=== PATIENT | female | born 1950 | race Caucasian/White ===

== ENCOUNTER 2016-11-11 13:47 | Inpatient (IN) | payer MEDICARE ==
[2016-11-11] MEDS ORDERED: IPRATROPIUM-ALBUTEROL 3 ML NEB INHALATION STA (14:38)
--- NOTE | 2016-11-11 14:41 | ED ---
General Adult HPI - General Chief complaint: Shortness of Breath Stated complaint: Dyspnea Time Seen by Provider: 11/11/16 14:25 Source: patient, RN notes reviewed Mode of arrival: ambulatory Limitations: no limitations - History of Present Illness Initial comments: Patient is a pleasant 66-year-old female presenting to the emergency department complaining of shortness of breath. Symptoms have been present for about a week. Patient does have cough with occasional green sputum. Patient does have COPD and feels is getting worse. No chest discomfort. No leg pain or leg swelling. No fevers. - Related Data Home Medications Medication Instructions Recorded Confirmed Lisinopril [Prinivil] 20 mg PO BID 12/10/14 11/11/16 Albuterol Inhaler [Ventolin Hfa 1 - 2 puff INHALATION RT-Q6H PRN 11/11/16 Inhaler] Omeprazole 20 mg PO DAILY 11/11/16 11/11/16 Allergies Allergy/AdvReac Type Severity Reaction Status Date / Time No Known Allergies Allergy Verified 11/11/16 15:55 Review of Systems ROS Statement: Those systems with pertinent positive or pertinent negative responses have been documented in the HPI. ROS Other: All systems not noted in ROS Statement are negative. Constitutional: Denies: fever Eyes: Denies: eye pain ENT: Denies: ear pain Respiratory: Reports: cough, dyspnea Cardiovascular: Denies: chest pain Endocrine: Denies: fatigue Gastrointestinal: Denies: abdominal pain Genitourinary: Denies: dysuria Musculoskeletal: Denies: back pain Skin: Denies: rash Neurological: Denies: weakness Past Medical History Past Medical History: Cancer, Hypertension, Thyroid Disorder History of Any Multi-Drug Resistant Organisms: None Reported Past Surgical History: Breast Surgery, Section, Hysterectomy, Tonsillectomy Additional Past Surgical History / Comment(s): Thyroid surgery; eye surgery Past Psychological History: No Psychological Hx Reported Smoking Status: Former smoker Past Alcohol Use History: None Reported, Daily Past Drug Use History: None Reported General Exam Limitations: no limitations General appearance: alert, in no apparent distress Head exam: Present: atraumatic, normocephalic Eye exam: Present: normal appearance, PERRL ENT exam: Present: normal oropharynx Neck exam: Present: normal inspection Respiratory exam: Present: rales (Right base) Cardiovascular Exam: Present: regular rate, normal rhythm Expanded Peripheral pulses: 2+: Radial (R), Radial (L), Dorsalis Pedis (R), Dorsalis Pedis (L) GI/Abdominal exam: Present: soft. Absent: tenderness Extremities exam: Present: normal inspection. Absent: pedal edema, calf tenderness Neurological exam: Present: alert Psychiatric exam: Present: normal affect, normal mood Skin exam: Absent: rash Course Vital Signs 11/11/16 11/11/16 11/11/16 14:17 14:45 14:48 Temperature 98.4 F Pulse Rate 105 H 96 Respiratory 18 18 18 Rate Blood Pressure 151/66 163/72 O2 Sat by Pulse 90 L 98 Oximetry 11/11/16 11/11/16 15:33 15:44 Temperature Pulse Rate 104 H 105 H Respiratory Rate Blood Pressure O2 Sat by Pulse Oximetry EKG Findings - EKG Comments: EKG Findings:: Normal sinus rhythm at 96. Normal intervals. Normal axis. Normal QRS. Normal ST-T. Medical Decision Making - Medical Decision Making Patient has probable early pneumonia. Patient does not meet sepsis criteria. Patient desaturates with ambulation to 84% and heart rate increased to 118. Patient is now agreeable to admission. Case discussed in detail with Dr. Tan, who will admit for Dr. Roman. Patient states she has seen Dr. Dougherty for pulmonary previously. - Lab Data Result diagrams: 11/11/16 14:44 11/11/16 14:44 Lab Results 11/11/16 11/11/16 11/11/16 Range/Units 14:44 14:44 14:44 WBC 9.2 (3.8-10.6) k/uL RBC 3.64 L (3.80-5.40) m/uL Hgb 11.0 L (11.4-16.0) gm/dL Hct 33.1 L (34.0-46.0) % MCV 90.9 (80.0-100.0) fL MCH 30.4 (25.0-35.0) pg MCHC 33.4 (31.0-37.0) g/dL RDW 13.7 (11.5-15.5) % Plt Count 415 (150-450) k/uL Neutrophils % 86 % Lymphocytes % 5 % Monocytes % 6 % Eosinophils % 0 % Basophils % 0 % Neutrophils # 7.9 H (1.3-7.7) k/uL Lymphocytes # 0.5 L (1.0-4.8) k/uL Monocytes # 0.6 (0-1.0) k/uL Eosinophils # 0.0 (0-0.7) k/uL Basophils # 0.0 (0-0.2) k/uL PT (9.0-12.0) sec INR (<1.1) APTT (22.0-30.0) sec Sodium 139 (137-145) mmol/L Potassium 3.9 (3.5-5.1) mmol/L Chloride 101 (98-107) mmol/L Carbon Dioxide 28 (22-30) mmol/L Anion Gap 10 mmol/L BUN 12 (7-17) mg/dL Creatinine 0.65 (0.52-1.04) mg/dL Est GFR (MDRD) Af Amer >60 (>60 ml/min/1.73 sqM) Est GFR (MDRD) Non-Af >60 (>60 ml/min/1.73 sqM) Glucose 91 (74-99) mg/dL Calcium 8.9 (8.4-10.2) mg/dL Total Bilirubin 0.7 (0.2-1.3) mg/dL AST 24 (14-36) U/L ALT 43 (9-52) U/L Alkaline Phosphatase 82 (38-126) U/L Total Creatine Kinase 158 H (30-135) U/L CK-MB (CK-2) 0.5 (0.0-2.4) ng/mL CK-MB (CK-2) Rel Index 0.3 Troponin I 0.018 (0.000-0.034) ng/mL NT-Pro-B Natriuret Pep pg/mL Total Protein 6.7 (6.3-8.2) g/dL Albumin 3.4 L (3.5-5.0) g/dL 11/11/16 11/11/16 Range/Units 14:44 14:44 WBC (3.8-10.6) k/uL RBC (3.80-5.40) m/uL Hgb (11.4-16.0) gm/dL Hct (34.0-46.0) % MCV (80.0-100.0) fL MCH (25.0-35.0) pg MCHC (31.0-37.0) g/dL RDW (11.5-15.5) % Plt Count (150-450) k/uL Neutrophils % % Lymphocytes % % Monocytes % % Eosinophils % % Basophils % % Neutrophils # (1.3-7.7) k/uL Lymphocytes # (1.0-4.8) k/uL Monocytes # (0-1.0) k/uL Eosinophils # (0-0.7) k/uL Basophils # (0-0.2) k/uL PT 11.1 (9.0-12.0) sec INR 1.1 (<1.1) APTT 25.8 (22.0-30.0) sec Sodium (137-145) mmol/L Potassium (3.5-5.1) mmol/L Chloride (98-107) mmol/L Carbon Dioxide (22-30) mmol/L Anion Gap mmol/L BUN (7-17) mg/dL Creatinine (0.52-1.04) mg/dL Est GFR (MDRD) Af Amer (>60 ml/min/1.73 sqM) Est GFR (MDRD) Non-Af (>60 ml/min/1.73 sqM) Glucose (74-99) mg/dL Calcium (8.4-10.2) mg/dL Total Bilirubin (0.2-1.3) mg/dL AST (14-36) U/L ALT (9-52) U/L Alkaline Phosphatase (38-126) U/L Total Creatine Kinase (30-135) U/L CK-MB (CK-2) (0.0-2.4) ng/mL CK-MB (CK-2) Rel Index Troponin I (0.000-0.034) ng/mL NT-Pro-B Natriuret Pep 2240 pg/mL Total Protein (6.3-8.2) g/dL Albumin (3.5-5.0) g/dL - Radiology Data Radiology results: image reviewed (Chest x-ray shows basilar infiltrate) Disposition Clinical Impression: Acute exacerbation of chronic obstructive airways disease, Pneumonia Disposition: ADMITTED IP TO THIS HOSP
[2016-11-11 14:57] LABS: Basophils % (A) 0 %; CH 29.5; CHCM 32.7; Eosinophils % (A) 0 %; HCT 33.1 % (34.0-46.0); HDW 2.32; Luc # (Auto) 0.19; Luc % (Auto) 2; Lymphocytes # (A) 0.5 k/uL (1.0-4.8); Lymphocytes % (A) 5 %; MCH 30.4 pg (25.0-35.0); MCHC 33.4 g/dL (31.0-37.0); MCV 90.9 fL (80.0-100.0); Mean Platelet Volume 7.6; Monocytes # (A) 0.6 k/uL (0-1.0); Monocytes % (A) 6 %; Neutrophils # (A) 7.9 k/uL (1.3-7.7); Neutrophils % (A) 86 %; RBC 3.64 m/uL (3.80-5.40); RDW 13.7 % (11.5-15.5); WBC 9.2 k/uL (3.8-10.6); WBC (Perox) 8.98
[2016-11-11 15:04] LABS: ALT 43 U/L (9-52); AST 24 U/L (14-36); Alkaline Phosphatase 82 U/L (38-126); Anion Gap 10 mmol/L; Blood Urea Nitrogen 12 mg/dL (7-17); Calcium 8.9 mg/dL (8.4-10.2); Carbon Dioxide 28 mmol/L (22-30); Chloride 101 mmol/L (98-107); Glucose 91 mg/dL (74-99); Non-African American GFR(MDRD) >60 (>60 ml/min/1.73 sqM); Potassium 3.9 mmol/L (3.5-5.1); Sodium 139 mmol/L (137-145); Total Bilirubin 0.7 mg/dL (0.2-1.3); Total Protein 6.7 g/dL (6.3-8.2)
--- NOTE | 2016-11-11 15:07 | XR ---
EXAMINATION TYPE: XR chest 2V DATE OF EXAM: 11/11/2016 3:02 PM COMPARISON: NONE TECHNIQUE: PA and lateral views submitted. HISTORY: Shortness of breath FINDINGS: Subsegmental changes involving the lung bases. Heart is prominent. No pneumothorax. Degenerative perry ge of the spine. Tiny bilateral pleural effusions. Atherosclerotic change aorta. IMPRESSION: 1. Bilateral basilar atelectasis or infiltrate with tiny effusions correlate for mild central venous congestion. 2. Findings suggest COPD
[2016-11-11 15:15] LABS: INR 1.1 (<1.1)
[2016-11-11 15:16] LABS: Partial Thromboplastin Time 25.8 sec (22.0-30.0); Prothrombin Time 11.1 sec (9.0-12.0)
[2016-11-11 15:30] LABS: Creatine Kinase MB 0.5 ng/mL (0.0-2.4); Troponin I 0.018 ng/mL (0.000-0.034)
[2016-11-11] MEDS ORDERED: LEVOFLOXACIN 750MG-D5W PMX 750 MG in DEXTROSE/WATER 1 150ML.BAG IVPB STA (16:28)
[2016-11-11] MEDS ORDERED: PNEUMONIA PROTOCOL UTILIZED 1 EACH MISC PO PRN (16:28)
[2016-11-11] MEDS ORDERED: methylPREDNISolone SOD SUCCI 125 MG/2 ML VIAL IV STA (16:28)
[2016-11-11] MEDS ORDERED: IPRATROPIUM-ALBUTEROL 3 ML NEB INHALATION PRN (16:28)
[2016-11-11] MEDS: SODIUM CHLORIDE 0.9% 1,000 ML IV SCH (16:53)
--- NOTE | 2016-11-11 18:20 | HP ---
DATE OF ADMISSION: 11/11/2016 The patient is a very pleasant 66 -year-old female came into the Emergency Room Department with one week of shortness of breath and cough and sputum production. The patient denied any ( ) dyspnea, nausea and vomiting, ( ) not consistent with pneumonia although ( ) the patient was started on systemic steroids and inhalational treatments. The patient is already feeling better at this point in time. The patient whenever she coughs, the patient has chest ( ) from ( ) for about a week. The patient used to be smoker. Quit smoking about a year ago. The patient does not use any oxygen at home. Home medications: 1. Lisinopril. 2. Albuterol. 3. ( ). ALLERGIES: No known drug allergies. REVIEW OF SYSTEMS: CONSTITUTIONAL: No fever, no malaise, no fatigue. HEENT: No recent visual problems or hearing problems. Denied any sore throat. CARDIOVASCULAR: No chest pain, orthopnea, PND, no palpitations, no syncope. PULMONARY: ( ) no cough, no hemoptysis. GASTROINTESTINAL: No diarrhea, no nausea, no vomiting, no abdominal pain. Normoactive bowel sounds. NEUROLOGICAL: No headaches, no weakness, no numbness. HEMATOLOGICAL: Denies any bleeding or petechiae. GENITOURINARY: Denies any burning micturition, frequency, or urgency. MUSCULOSKELETAL/RHEUMATOLOGICAL: Denies any joint pain, swelling, or any muscle pain. ENDOCRINE: Denies any polyuria or polydipsia. The rest of the 14 point review of systems is negative. PAST MEDICAL HISTORY: Hypertension, hypothyroidism, breast cancer in the past, ( ) hysterectomy, breast surgery, tonsillectomy in the past. SOCIAL HISTORY: ( ) smoker, ( ) denied any alcohol abuse or any drug abuse. FAMILY HISTORY: Significant for hypertension. PHYSICAL EXAMINATION: VITAL SIGNS: Temperature 98.2, pulse 105, respiratory rate 18, blood pressure is 129/62, saturating at 90% on 3 L of O2 by nasal cannula. GENERAL: The patient is alert and oriented x3, not in any acute distress. Well developed, well nourished. HEENT: Pupils are round and equally reacting to light. EOMI. No scleral icterus. No conjunctival pallor. Normocephalic, atraumatic. No pharyngeal erythema. No thyromegaly. CARDIOVASCULAR: S1 and S2 present. No murmurs, rubs, or gallops. PULMONARY: ( ) bilateral lung shaikh ( ). No crackles are appreciated. ABDOMEN: Soft, nontender, nondistended, normoactive bowel sounds. No palpable organomegaly. MUSCULOSKELETAL: No joint swelling or deformity. EXTREMITIES: No cyanosis, clubbing, or pedal edema. NEUROLOGICAL: Gross neurological examination did not reveal any focal deficits. SKIN: No rashes. LABORATORY DATA: CBC, BMP within normal limits. ASSESSMENT AND PLAN: 1. Acute hypercapnic respiratory failure, ( ) chronic obstructive pulmonary disease exacerbation. The patient is continued on ( ) the patient is already ( ) continue ( ) bronchitis. 2. Hypertension, continue hypertensives. 3. Hypothyroidism. Continue with her home medications ( ) as well. 4. Gastroesophageal reflux disease. 5. ( ).
[2016-11-11] MEDS: IPRATROPIUM-ALBUTEROL 3 ML NEB INHALATION SCH (20:14)
[2016-11-11 21:02] LABS: Glucose,Whole Blood 161 mg/dL (75-99)
[2016-11-11] MEDS: INSULIN LISPRO (humaLOG) 300 UNIT/3 ML VIAL SQ SCH (21:13)
[2016-11-11] MEDS: LISINOPRIL 20 MG TAB PO SCH (21:14)
[2016-11-11] MEDS ORDERED: TEMAZEPAM 15 MG CAP PO SCH (21:30)
[2016-11-11 22:45] LABS: Hemoglobin A1C 5.8 % (4.2-6.1)
[2016-11-11] MEDS: methylPREDNISolone SOD SUCCI 125 MG/2 ML VIAL IV SCH (23:22)
[2016-11-12] MEDS: SODIUM CHLORIDE 0.9% 1,000 ML IV SCH ×2 (02:38→10:18)
[2016-11-12] MEDS: methylPREDNISolone SOD SUCCI 125 MG/2 ML VIAL IV SCH ×3 (06:00→17:09)
[2016-11-12 06:57] LABS: Glucose,Whole Blood 135 mg/dL (75-99)
[2016-11-12] MEDS: LISINOPRIL 20 MG TAB PO SCH ×2 (07:37→22:00)
[2016-11-12] MEDS: PANTOPRAZOLE 40 MG TABLET PO SCH (07:38)
[2016-11-12] MEDS: INSULIN LISPRO (humaLOG) 300 UNIT/3 ML VIAL SQ SCH ×4 (07:39→21:59)
[2016-11-12] MEDS: IPRATROPIUM-ALBUTEROL 3 ML NEB INHALATION SCH ×4 (09:01→19:28)
--- NOTE | 2016-11-12 09:01 | XR ---
EXAMINATION TYPE: XR chest 2V DATE OF EXAM: 11/12/2016 8:01 AM COMPARISON: 11/11/2016 TECHNIQUE: PA and lateral views submitted. HISTORY: Shortness of breath FINDINGS: Subsegmental changes involving the lung bases. Heart is prominent. No pneumothorax. Degenerative perry ge of the spine. Tiny bilateral pleural effusions. Atherosclerotic change aorta. IMPRESSION: 1. Bilateral basilar atelectasis or infiltrate with tiny effusions correlate for mild central venous congestion. No interval change. 2. Findings suggest COPD
[2016-11-12 10:12] VITALS: BMI 24.7
--- NOTE | 2016-11-12 11:28 | P.CNPUL ---
History of Present Illness Consult date: 11/12/16 Requesting physician: Chelsi Tan Reason for consult: COPD Chief complaint: Shortness of breath History of present illness: This patient is a 66-year-old female being evaluated and examined today on the fourth floor. This patient is known to our office. The patient came into the emergency room yesterday complaining with complaints of shortness of breath that had been going on for over a week. The patient does have a productive cough with green sputum. The patient does have a significant history for COPD. In the ER it was noted that the patient didn't desaturate with ambulation to 84% and her heart rate increased to 118. Upon examination the patient is resting in bed on 2 L of oxygen. She states she does have a significant productive cough with green sputum. She denies any chest pain, fevers, chills, nausea, vomiting or sweats. Review of Systems 14 point review of systems has been completed and is negative other than what is noted in the HPI. Past Medical History Past Medical History: Cancer, COPD, GERD/Reflux, Hypertension, Osteoarthritis ( OA), Pneumonia, Thyroid Disorder Additional Past Medical History / Comment(s): THYROID NODULE(BENIGN), LT BREAST CANCER History of Any Multi-Drug Resistant Organisms: None Reported Past Surgical History: Breast Surgery, Section, Hernia Repair, Hysterectomy, Tonsillectomy Additional Past Surgical History / Comment(s): PARTIALThyroidectomy(nodule) s, [place] cataracts-lens implants, lt breast lumpectomy and sential nodes removed, x4 c-sections,abd hernia repair Past Anesthesia/Blood Transfusion Reactions: No Reported Reaction Past Psychological History: No Psychological Hx Reported Additional Psychological History / Comment(s): pt is independant, lives with sig other and 1 cat. works as a formal waiter/waitress. no outside services recieved. no hipsotial equipment at home. has 4 steps to get into home-single level house. Smoking Status: Former smoker Past Alcohol Use History: None Reported, Occasional Additional Past Alcohol Use History / Comment(s): started smoking at age 14, smoked 1 ppd, quit 2014, admits to 3 drinks per week Past Drug Use History: None Reported - Past Family History Father Family Medical History: Cancer Additional Family Medical History / Comment(s): bone cancer, smoker Mother Family Medical History: Cancer Additional Family Medical History / Comment(s): lung cancer Medications and Allergies Home Medications Medication Instructions Recorded Confirmed Type Lisinopril [Prinivil] 20 mg PO BID 12/10/14 11/11/16 History Albuterol Inhaler [Ventolin Hfa 1 - 2 puff INHALATION RT-Q6H PRN 11/11/16 History Inhaler] Omeprazole 20 mg PO DAILY 11/11/16 11/11/16 History Allergies Allergy/AdvReac Type Severity Reaction Status Date / Time No Known Allergies Allergy Verified 11/11/16 15:55 Physical Exam Vitals: Vital Signs Temp Pulse Pulse Resp BP BP Pulse Ox 11/12/16 09:01 88 11/12/16 08:00 77 20 11/12/16 07:00 97.7 F 77 20 119/62 98 11/12/16 00:00 18 11/11/16 23:00 99.3 F 91 18 113/53 90 L 11/11/16 20:22 92 11/11/16 20:14 88 11/11/16 18:10 98.4 F 101 H 16 155/62 94 L 11/11/16 17:57 99.1 F 101 H 16 130/70 99 11/11/16 16:51 99.5 F 102 H 17 153/66 94 L Intake and Output 11/11/16 11/12/16 11/12/16 22:59 06:59 14:59 Intake Total 240 800 240 Balance 240 800 240 Intake: Intake, IV Titration 800 Amount Sodium Chloride 0.9% 1, 800 000 ml @ 100 mls/hr IV . Q10H [facility] Rx#:[id number] Oral 240 240 Other: Weight 61.235 kg Patient Weight 11/13/16 06:59 Weight 61.235 kg GENERAL EXAM: Alert, active, comfortable in no apparent distress. HEAD: Normocephalic. EYES: Normal reaction of pupils, equal size. NOSE: Clear with pink turbinates. THROAT: No erythema or exudates. NECK: No masses, no JVD. CHEST: No chest wall deformity. LUNGS: Equal air entry bilaterally, bilateral bases noted to have some faint crackles CVS: S1 and S2 normal with no audible mumurs, regular rhythm. ABDOMEN: No hepatosplenomegaly, normal bowel sounds, no guarding or rigidity. EXTREMITIES: No edema noted, pedal pulses palpable. SKIN: No rashes CENTRAL NERVOUS SYSTEM: No focal deficits, tone is normal in all 4 extremities. Results - Laboratory Findings CBC and BMP: 11/11/16 14:44 11/11/16 14:44 PT/INR, D-dimer PT 11.1 sec (9.0-12.0) 11/11/16 14:44 INR 1.1 (<1.1) 11/11/16 14:44 Abnormal lab findings: Abnormal Labs 11/11/16 11/12/16 21:00 06:42 POC Glucose (mg/dL) 161 H 135 H - Diagnostic Findings Chest x-ray: report reviewed, image reviewed Assessment and Plan Plan: Assessment Acute hypercapnic respiratory failure Bilateral community-acquired pneumonia Acute on chronic diastolic heart failure Hypertension Hypothyroidism. GERD Plan Medications have been reviewed and we will continue. We will continue with nebulizer treatments and IV steroids. We will add budesonide as an inhaled steroid as well. We will cut back IV fluids to 50 miles an hour. Influenza swab has been negative. We will have the patient use an incentive spirometer. Obtain sputum culture. Encourage ambulation. We will continue to monitor labs and adjust treatment as necessary.
[2016-11-12 12:10] LABS: Glucose,Whole Blood 143 mg/dL (75-99)
[2016-11-12] MEDS ORDERED: RX INFO: IV CONTRAST WAS GIVEN 1 EACH MISC MISCELLANE PRN (12:42)
--- NOTE | 2016-11-12 15:09 | PN ---
Patient is admitted with COPD exacerbation. Patient is clinically doing well, but patient still desaturated. Patient's lungs sound good, in spite of which patient is still desaturating, because of which I have a little concern of about pulmonary embolism, because of which I will obtain a CT of the chest for PE if d-dimer is elevated. Patient is also tachycardic. If patient is clinically doing well, patient can be discharged tomorrow if PE is negative. REVIEW OF SYSTEMS: CARDIOVASCULAR: No chest pain, no orthopnea, no PND, no palpitations. PULMONARY: Denied any shortness of breath. No cough or hemoptysis. GASTROINTESTINAL: No diarrhea, nausea or vomiting. No abdominal pain. Normoactive bowel sounds. NEUROLOGIC: No headaches, no weakness, no numbness. Medications were reviewed. PHYSICAL EXAMINATION: VITAL SIGNS: Temperature 97.7, pulse of 92, respiratory rate of 20, blood pressure is 119/62, saturating at 98% on 2 L of O2 by nasal cannula. GENERAL: The patient is alert and oriented x3, not in any acute distress. Well developed, well nourished. HEENT: Pupils are round and equally reacting to light. EOMI. No scleral icterus. No conjunctival pallor. Normocephalic, atraumatic. No pharyngeal erythema. No thyromegaly. CARDIOVASCULAR: S1 and S2 present. No murmurs, rubs, or gallops. PULMONARY: Chest is clear to auscultation, no wheezing or crackles. ABDOMEN: Soft, nontender, nondistended, normoactive bowel sounds. No palpable organomegaly. MUSCULOSKELETAL: No joint swelling or deformity. EXTREMITIES: No cyanosis, clubbing, or pedal edema. NEUROLOGICAL: Gross neurological examination did not reveal any focal deficits. SKIN: No rashes. LABORATORY DATA: CBC, CMP, essentially within normal limits. ASSESSMENT AND PLAN: 1. Acute hypercapnic respiratory failure along with some acute hypoxic respiratory failure secondary to chronic obstructive pulmonary disease exacerbation. Rule out pulmonary embolism. 2. Hypertension. 3. Hypothyroidism. 4. Gastroesophageal reflux disease. 5. Osteoarthritis. For the rest of the above-mentioned chronic medical problems, I will go ahead and continue home medications, continue with systemic steroids, inhalational treatments. Possibility of discharge tomorrow on systemic steroids and oral antibiotics.
--- NOTE | 2016-11-12 15:47 | CT ---
CT CHEST FOR PULMONARY EMBOLISM. EXAMINATION TYPE: CT chest angio for PE DATE OF EXAM: 11/12/2016 3:06 PM INDICATION: Pt states of low O2 levels. CT DLP: 145.6 mGycm, Automated exposure control for dose reduction was used. CONTRAST: Patient injected with 70 mL of Omnipaque 350. COMPARISON: 06/16/2016 TECHNIQUE: CT of the chest is performed on a spiral scan at 2 mm thick sections. Study is performed with intravenous contrast timed for evaluation for pulmonary embolism. This will limit additional po rtions of the evaluation. 3-D MIP images reconstructed by the technologist are reviewed on the compu ter in the coronal and sagittal planes. FINDINGS: No persistent filling defects are evident to suggest an acute pulmonary embolism. No mediastinal or hilar adenopathy enlarged by CT criteria is evident. The ascending aorta diameter at the level of the main pulmonary artery is 2.9 cm. The main pulmonary artery diameter at the bifur cation is 2.6 cm. Mild pneumonitis changes are within the mid lingula and within the lower right middle lobe. Some atel ectasis may be at the cardiophrenic angle of the right middle lobe. Some atelectatic changes may be a t the left lingular base. Some streak opacities in both the bilateral diaphragms suggestive for subse gmental atelectasis. Infectious etiologies could be considered. Underlying masses are considered less likely but not entirely excluded. Findings should be followed to clearing. Limited CT section through the upper abdomen are unremarkable. There is a small hiatal hernia present . IMPRESSIONS: 1. No acute pulmonary embolism. 2. Probable scattered areas of atelectasis. Follow-up to clearing is recommended. Findings are interv al changes from 06/16/2016
[2016-11-12 16:54] LABS: Glucose,Whole Blood 208 mg/dL (75-99)
[2016-11-12] MEDS: LEVOFLOXACIN 750 MG TAB PO SCH (17:09)
[2016-11-12] MEDS: BUDESONIDE 1 MG/2 ML NEBU INHALATION SCH (19:28)
[2016-11-12 20:41] LABS: Glucose,Whole Blood 150 mg/dL (75-99)
[2016-11-12] MEDS ORDERED: TEMAZEPAM 15 MG CAP PO PRN (21:44)
[2016-11-13] MEDS: methylPREDNISolone SOD SUCCI 125 MG/2 ML VIAL IV SCH ×2 (00:51→06:18)
[2016-11-13] MEDS: SODIUM CHLORIDE 0.9% 1,000 ML IV SCH (06:18)
[2016-11-13] MEDS: BUDESONIDE 1 MG/2 ML NEBU INHALATION SCH ×2 (07:24→20:03)
[2016-11-13] MEDS: IPRATROPIUM-ALBUTEROL 3 ML NEB INHALATION SCH ×4 (07:24→20:03)
[2016-11-13 07:34] LABS: Glucose,Whole Blood 151 mg/dL (75-99)
[2016-11-13] MEDS: PANTOPRAZOLE 40 MG TABLET PO SCH (08:09)
[2016-11-13] MEDS: INSULIN LISPRO (humaLOG) 300 UNIT/3 ML VIAL SQ SCH ×4 (08:09→20:53)
[2016-11-13] MEDS: LISINOPRIL 20 MG TAB PO SCH ×2 (08:09→20:53)
[2016-11-13] MEDS: FUROSEMIDE 10 MG/ML 4 ML VIAL IV SCH ×2 (10:06→16:47)
[2016-11-13 10:19] LABS: ALT 37 U/L (9-52); AST 23 U/L (14-36); Alkaline Phosphatase 72 U/L (38-126); Anion Gap 13 mmol/L; Blood Urea Nitrogen 19 mg/dL (7-17); Carbon Dioxide 20 mmol/L (22-30); Chloride 108 mmol/L (98-107); Glucose 187 mg/dL (74-99); Non-African American GFR(MDRD) >60 (>60 ml/min/1.73 sqM); Potassium 3.5 mmol/L (3.5-5.1); Sodium 141 mmol/L (137-145); Total Bilirubin 0.5 mg/dL (0.2-1.3); Total Protein 6.2 g/dL (6.3-8.2)
[2016-11-13 10:49] LABS: Basophils % (A) 0 %; CHCM 30.7; Eosinophils % (A) 0 %; HCT 30.8 % (34.0-46.0); Hypochromasia Slight; Luc # (Auto) 0.06; Luc % (Auto) 1; Lymphocytes # (A) 0.2 k/uL (1.0-4.8); Lymphocytes % (A) 2 %; MCH 28.8 pg (25.0-35.0); MCHC 30.3 g/dL (31.0-37.0); Mean Platelet Volume 8.2; Monocytes # (A) 0.2 k/uL (0-1.0); Monocytes % (A) 2 %; Neutrophils # (A) 10.9 k/uL (1.3-7.7); Neutrophils % (A) 96 %; RBC 3.24 m/uL (3.80-5.40); RDW 13.5 % (11.5-15.5); WBC 11.4 k/uL (3.8-10.6)
[2016-11-13 10:50] LABS: HGB 9.3 gm/dL (11.4-16.0)
--- NOTE | 2016-11-13 11:09 | ECHOF ---
Referral Reason:chf MEASUREMENTS -------- HEIGHT: 157.5 cm WEIGHT: 61.2 kg BP: 134/65 RVIDd: 3.2 cm (< 3.3) IVSd: 1.1 cm (0.6 - 1.1) LVIDd: 4.5 cm (3.9 - 5.3) LVPWd: 1.2 cm (0.6 - 1.1) IVSs: 1.5 cm LVIDs: 3.1 cm LVPWs: 1.6 cm LA Diam: 3.6 cm (2.7 - 3.8) LAESV Index (A-L): 36.19 ml/m Ao Diam: 2.6 cm (2.0 - 3.7) AV Cusp: 1.2 cm (1.5 - 2.6) LA Diam: 3.0 cm (2.7 - 3.8) MV EXCURSION: 18.742 mm (> 18.000) MV EF SLOPE: 141 mm/s (70 - 150) EPSS: 0.6 cm MV E Pieter: 0.72 m/s MV DecT: 203 ms MV A Pieter: 0.78 m/s MV E/A Ratio: 0.92 RAP: 5.00 mmHg RVSP: 42.49 mmHg FINDINGS -------- Sinus rhythm. This was a technically good study. There is borderline concentric left ventricular hypertrophy. Overall left ventricular systolic function is low-normal with, an EF between 50 - 55 %. The right ventricle is normal in size. LA is moderately dilated 34-39 ml/m2 The right atrium is normal in size. Aortic valve is trileaflet and is mildly thickened. The mitral valve leaflets are mildly thickened. Mild mitral annular calcification present. Mild mitral regurgitation is present. Mild tricuspid regurgitation present. There is mild pulmonary hypertension. The right ventricular systolic pressure, as measured by Doppler, is 42.49mmHg. Pulmonic valve appears structurally normal. The aortic root size is normal. Normal inferior vena cava with normal inspiratory collapse consistent with estimated right atrial pressure of 5 mmHg. Echo free space may represent effusion or a pericardial fat pad. CONCLUSIONS -------- 1. Sinus rhythm. 2. Mild mitral annular calcification present. 3. Mild mitral regurgitation is present. 4. Mild tricuspid regurgitation present. 5. There is mild pulmonary hypertension. 6. The right ventricular systolic pressure, as measured by Doppler, is 42.49mmHg. 7. Pulmonic valve appears structurally normal. 8. The aortic root size is normal. 9. Normal inferior vena cava with normal inspiratory collapse consistent with estimated right atrial pressure of 5 mmHg. 10. Echo free space may represent effusion or a pericardial fat pad. 11. This was a technically good study. 12. There is borderline concentric left ventricular hypertrophy. 13. Overall left ventricular systolic function is low-normal with, an EF between 50 - 55 %. 14. The right ventricle is normal in size. 15. LA is moderately dilated 34-39 ml/m2 16. The right atrium is normal in size. 17. Aortic valve is trileaflet and is mildly thickened. 18. The mitral valve leaflets are mildly thickened. FOUNTAIN WORKER: Ronn Johnson RDCS
[2016-11-13 11:47] LABS: Glucose,Whole Blood 132 mg/dL (75-99)
--- NOTE | 2016-11-13 12:59 | P.PN ---
Subjective This patient is a 66-year-old female being evaluated and examined today on the fourth floor. This patient is known to our office. Patient came into the emergency room initially complaining of increasing in shortness of breath had been going on for over a week. The patient does have a productive cough with green sputum. The patient does have a significant history of COPD. In the ER it was noted that the patient did desaturate with ambulation to 84% and her heart rate increased to 118. Upon examination the patient is resting up in bed on room air. She states she hasn't required oxygen since yesterday. She also has been ambulating in the halls today as well. She does complain of a productive cough with green sputum that has been consistent. She denies any chest pain, fevers, chills, nausea, vomiting or sweats. Objective - Vital Signs Vital signs: Vital Signs Temp 98.0 F 11/13/16 07:00 Pulse 88 11/13/16 11:30 Resp 18 11/13/16 08:00 BP 134/65 11/13/16 07:00 Pulse Ox 94 L 11/13/16 07:00 Intake & Output 11/12/16 11/13/16 11/13/16 18:59 06:59 18:59 Intake Total 390 300 Balance 390 300 Weight 61.235 kg Intake: Oral 390 300 Other: Voiding Method Toilet # Voids 1 2 - Exam GENERAL EXAM: Alert, active, comfortable in no apparent distress. HEAD: Normocephalic. EYES: Normal reaction of pupils, equal size. NOSE: Clear with pink turbinates. THROAT: No erythema or exudates. NECK: No masses, no JVD. CHEST: No chest wall deformity. LUNGS: Equal air entry some faint bilateral crackles in the bases. CVS: S1 and S2 normal with no audible mumurs, regular rhythm. ABDOMEN: No hepatosplenomegaly, normal bowel sounds, no guarding or rigidity. EXTREMITIES: No edema noted, pedal pulses palpable. SKIN: No rashes CENTRAL NERVOUS SYSTEM: No focal deficits, tone is normal in all 4 extremities. - Labs CBC & Chem 7: 11/13/16 08:58 11/13/16 08:58 Labs: Abnormal Lab Results - Last 24 Hours (Table) 11/12/16 11/12/16 11/12/16 Range/Units 14:40 16:52 20:40 WBC (3.8-10.6) k/uL RBC (3.80-5.40) m/uL Hgb (11.4-16.0) gm/dL Hct (34.0-46.0) % MCHC (31.0-37.0) g/dL Neutrophils # (1.3-7.7) k/uL Lymphocytes # (1.0-4.8) k/uL D-Dimer 0.66 H (<0.60) mg/L FEU Chloride (98-107) mmol/L Carbon Dioxide (22-30) mmol/L BUN (7-17) mg/dL Glucose (74-99) mg/dL POC Glucose (mg/dL) 208 H 150 H (75-99) mg/dL Total Protein (6.3-8.2) g/dL Albumin (3.5-5.0) g/dL 11/13/16 11/13/16 11/13/16 Range/Units 07:32 08:58 08:58 WBC 11.4 H (3.8-10.6) k/uL RBC 3.24 L (3.80-5.40) m/uL Hgb 9.3 L D (11.4-16.0) gm/dL Hct 30.8 L (34.0-46.0) % MCHC 30.3 L (31.0-37.0) g/dL Neutrophils # 10.9 H (1.3-7.7) k/uL Lymphocytes # 0.2 L (1.0-4.8) k/uL D-Dimer (<0.60) mg/L FEU Chloride 108 H (98-107) mmol/L Carbon Dioxide 20 L (22-30) mmol/L BUN 19 H (7-17) mg/dL Glucose 187 H (74-99) mg/dL POC Glucose (mg/dL) 151 H (75-99) mg/dL Total Protein 6.2 L (6.3-8.2) g/dL Albumin 3.1 L (3.5-5.0) g/dL 11/13/16 Range/Units 11:45 WBC (3.8-10.6) k/uL RBC (3.80-5.40) m/uL Hgb (11.4-16.0) gm/dL Hct (34.0-46.0) % MCHC (31.0-37.0) g/dL Neutrophils # (1.3-7.7) k/uL Lymphocytes # (1.0-4.8) k/uL D-Dimer (<0.60) mg/L FEU Chloride (98-107) mmol/L Carbon Dioxide (22-30) mmol/L BUN (7-17) mg/dL Glucose (74-99) mg/dL POC Glucose (mg/dL) 132 H (75-99) mg/dL Total Protein (6.3-8.2) g/dL Albumin (3.5-5.0) g/dL Microbiology - Last 24 Hours (Table) 11/11/16 17:29 Blood Culture - Preliminary Blood No Growth after 24 hours Assessment and Plan Plan: Assessment Acute hypercapnic respiratory failure Bilateral community-acquired pneumonia Acute on chronic diastolic heart failure Hypertension Hypothyroidism. GERD Plan Medications have been reviewed and we will continue. We will continue with nebulizer treatments and IV steroids. Her IV fluids have been turned off. Echo has been performed and reveals an EF of 50-55%, along with mild mitral valve and tricuspid valve regurgitation, as well as mild pulmonary hypertension. Influenza swab has been negative. Obtain sputum culture. Encourage ambulation. Preliminary blood cultures are negative. We will continue to monitor labs and adjust treatment as necessary.
[2016-11-13] MEDS ORDERED: methylPREDNISolone SOD SUCCI 40 MG/ML 1 ML VIAL IV SCH (16:00)
[2016-11-13 17:07] LABS: Glucose,Whole Blood 141 mg/dL (75-99)
[2016-11-13] MEDS: LEVOFLOXACIN 750 MG TAB PO SCH (17:58)
[2016-11-13 20:57] LABS: Glucose,Whole Blood 146 mg/dL (75-99)
[2016-11-13] MEDS ORDERED: TEMAZEPAM 15 MG CAP PO ONE (21:07)
--- NOTE | 2016-11-13 22:20 | PN ---
DATE OF SERVICE: 11/13/2016 PRESENTING COMPLAINT: Short of breath. INTERVAL HISTORY: This is a patient who presented with COPD exacerbation in a patient who had been a smoker. PE was ruled out. I saw this patient earlier today. Breathing is better, still a little bit short of breath at rest. Slight cough. Review of systems done for constitutional, cardiovascular, GI, pulmonary; relevant findings as above. Current medications are reviewed that include: 1. Bronchodilators and 2. Solu-Medrol. On examination, temperature 98, pulse 93, respirations 18, blood pressure 130/65, pulse ox 94% on room air. GENERAL APPEARANCE: Sitting up, slightly short of breath. EYES: Pupils equal. Conjunctivae normal. NECK: JVD raised. Mass not palpable. RESPIRATORY: Effort increased. LUNGS: Basal crackles. CARDIOVASCULAR: First and second sounds normal. Minimal edema. ABDOMEN: Soft, nontender. Liver and spleen not palpable. PSYCHIATRY: Alert and oriented x3. Mood. Mood and affect normal. INVESTIGATIONS: White count 11.4, hemoglobin 9.3. Potassium 3.5. Patient's chest x-ray reviewed from yesterday shows possibly pulmonary edema and also patient's proBNP on admission was 2240. ASSESSMENT: 1. Acute congestive heart failure exacerbation with clinical decompensation. Ejection fraction not known. 2. Acute hypercapnic hypoxic respiratory failure secondary to chronic obstructive pulmonary disease exacerbation, present on admission. 3. Essential hypertension. 4. Hypothyroidism. 5. Gastroesophageal reflux disease. 6. Primary osteoarthritis of multiple joints, bilateral. PLAN: Patient's IV fluids will be stopped. I will give the patient IV Lasix. This was discussed with the patient. I also ordered a 2-D echocardiogram to assess LV function. The COPD component is actually improving. Patient may have underlying CHF. Repeat a chest x-ray and give 2 doses of IV Lasix.
--- NOTE | 2016-11-14 07:19 | XR ---
EXAMINATION TYPE: XR chest 2V DATE OF EXAM: 11/14/2016 6:39 AM COMPARISON: NONE TECHNIQUE: PA and lateral views submitted. HISTORY: Shortness of breath FINDINGS: Subsegmental changes involving the lung bases. Heart is prominent. No pneumothorax. Degenerative perry ge of the spine. Tiny bilateral pleural effusions. Atherosclerotic change aorta. IMPRESSION: 1. Bilateral basilar atelectasis or infiltrate with tiny effusions correlate for mild central venous congestion. No interval change. 2. Findings suggest COPD
[2016-11-14 07:54] LABS: Glucose,Whole Blood 95 mg/dL (75-99)
[2016-11-14 07:57] VITALS: BP 143/68; PULSE 77; RESP 16; TEMP 98.1
[2016-11-14 08:13] LABS: Anion Gap 11 mmol/L; Blood Urea Nitrogen 27 mg/dL (7-17); Calcium 8.9 mg/dL (8.4-10.2); Carbon Dioxide 31 mmol/L (22-30); Chloride 102 mmol/L (98-107); Glucose 100 mg/dL (74-99); Non-African American GFR(MDRD) >60 (>60 ml/min/1.73 sqM); Potassium 3.3 mmol/L (3.5-5.1); Sodium 144 mmol/L (137-145)
[2016-11-14] MEDS: INSULIN LISPRO (humaLOG) 300 UNIT/3 ML VIAL SQ SCH ×2 (08:24→12:55)
[2016-11-14] MEDS: PANTOPRAZOLE 40 MG TABLET PO SCH (08:26)
[2016-11-14] MEDS: LISINOPRIL 20 MG TAB PO SCH (08:26)
[2016-11-14] MEDS: IPRATROPIUM-ALBUTEROL 3 ML NEB INHALATION SCH ×2 (08:37→11:56)
[2016-11-14] MEDS: BUDESONIDE 1 MG/2 ML NEBU INHALATION SCH (08:37)
[2016-11-14] MEDS ORDERED: SPIRONOLACTONE 25 MG TAB PO SCH (09:00)
[2016-11-14] MEDS ORDERED: predniSONE 20 MG TAB PO SCH (09:00)
--- NOTE | 2016-11-14 11:49 | PN ---
DATE OF SERVICE: 11/14/2016 HISTORY OF PRESENT ILLNESS: The patient is a 66-year-old female who came into the hospital with increased problems with shortness of breath that had been going on for about a week with productive cough of greenish type sputum. She does have a known history of COPD. She is seen today. She is doing relatively better. Her potassium is slightly low and has been corrected. She continues with nebulizer treatments, antibiotics and steroids. She states she still has problems with nonproductive cough. She has had no nausea, vomiting, chest pain or diarrhea noted. She appears in no acute respiratory distress at this time. Lung sounds remains somewhat coarse mostly bases. She was admitted with community-acquired pneumonia and acute hypercapnic respiratory failure. She is probably relatively stable pulmonary choi for discharge as long as she continues with nebulizer treatments and tapering steroids. On physical examination, vital signs show temperature of 98.1, heart rate 77, respiratory rate 16, blood pressure is 143/68, oxygen saturation on room air is 95%. Her labs show sodium of 144, potassium 3.3, chloride 102, carbon dioxide 31, BUN 27, creatinine 0.76. Glucose was 95. Calcium 8.9. Her blood culture showed no growth. Her chest x-ray from today shows bilateral basilar atelectasis or infiltrate with tiny effusions correlate for mild central venous congestion. No interval changes with the findings suggestive of COPD. GENERAL: She is a pleasant 66-year-old female who appears in no acute respiratory distress at this time. HEENT: Pupils are reactive. Mucous membranes are moist. NECK: Supple. Trach is midline. Lung sounds slightly coarse. A few rales at bases. CARDIOVASCULAR: S1 and S2 is heard, regular. No murmurs. ABDOMEN: Soft. Bowel sounds are heard. EXTREMITIES: No edema. Pulses are palpable. NEUROLOGIC: She is awake, alert. IMPRESSION: 1. Bilateral community-acquired pneumonia. 2. Hypercapnic respiratory failure on admission. 3. Acute on chronic diastolic congestive heart failure. 4. Hypertension. 5. Hypothyroidism. 6. Gastroesophageal reflux disease. 7. Hypokalemia. 8. Ejection fraction was 50% to 55% with RVSP of 42.49 mmHg, PLAN: Will continue patient with her present medications including her nebulizer treatments, DuoNeb and budesonide. She may benefit from having at least DuoNeb at home and continue with tapering steroids. Continue with Levaquin for at least a total 7 days. Continue with GI and DVT prophylaxis. Potassium has been replaced. Increase activity. Continue with incentive spirometer. If discharged, she should follow up with Dr. Dougherty in about one week's time. The patient is stable at this time. cc: Dr Miguelina MORIN
[2016-11-14] MEDS ORDERED: POTASSIUM CHLORIDE ER 20 MEQ TAB.ER PO SCH (12:00)
[2016-11-14 12:44] LABS: Glucose,Whole Blood 100 mg/dL (75-99)
--- NOTE | 2016-11-14 20:21 | DS ---
DATE OF ADMISSION: 11/11/2016 DATE OF DISCHARGE: 11/14/2016 FINAL DIAGNOSES: 1. Acute congestive heart failure exacerbation from diastolic dysfunction, ejection fraction 50% from underlying hypertension, present on admission. 2. Acute hypercapnic hypoxic respiratory failure secondary to chronic obstructive pulmonary disease, present on admission. 3. Essential hypertension. 4. Hypothyroidism. 5. Gastroesophageal reflux disease. 6. Primary osteoarthritis of multiple joints, bilateral. HOSPITAL COURSE: This patient presented with shortness of breath, felt to have COPD and CHF exacerbation as confirmed by elevated BNP and good response to Lasix. A 2-D echocardiogram showed EF preserved at 50% to 55%. Patient is doing much better at the time of discharge. Care was discussed with the patient. On exam, lungs decreased breath sounds. CONSULTATION: Dr. Dougherty from pulmonary. DISCHARGE MEDICATIONS: 1. Ventolin 1 to 2 puffs q.6 p.r.n. 2. Omeprazole 20 mg a day. 3. Atrovent HFA 2 puffs q.i.d. 4. Prinivil 20 mg q.h.s. 5. Aldactone 25 mg a day. 6. Prednisone taper. Follow with Dr. Roman in one week, follow with Dr. Dougherty in one week. Discharge planning more than 35 minutes.
== END 2016-11-14 13:30 | disposition home or self-care (01) | DRG 190 ==
LOC: EC 13:47 → 4MS4W 16:28
PROVIDERS: ADMIT Hospitalist; ATTEND Hospitalist
DX: J44.1 Chronic obstructive pulmonary disease with (acute) exacerbation (principal); I50.33 Acute on chronic diastolic (congestive) heart failure; J96.01 Acute respiratory failure with hypoxia; J96.02 Acute respiratory failure with hypercapnia; I27.2 Other secondary pulmonary hypertension; I11.0 Hypertensive heart disease with heart failure; E87.6 Hypokalemia; I08.1 Rheumatic disorders of both mitral and tricuspid valves; E89.0 Postprocedural hypothyroidism; R00.0 Tachycardia, unspecified; K21.9 Gastro-esophageal reflux disease without esophagitis; M19.91 Primary osteoarthritis, unspecified site; Z87.891 Personal history of nicotine dependence; Z85.3 Personal history of malignant neoplasm of breast; Z82.49 Family history of ischemic heart disease and other diseases of the circulatory system; Z96.1 Presence of intraocular lens; Z80.1 Family history of malignant neoplasm of trachea, bronchus and lung; Z80.8 Family history of malignant neoplasm of other organs or systems; Z79.899 Other long term (current) drug therapy; Z71.3 Dietary counseling and surveillance; Z90.710 Acquired absence of both cervix and uterus; Z90.12 Acquired absence of left breast and nipple; Z98.42 Cataract extraction status, left eye; Z98.41 Cataract extraction status, right eye; Z87.01 Personal history of pneumonia (recurrent)
CPT/HCPCS: 36415; 71020; 71275; 80048; 80053; 82550; 82553; 83036; 83880; 84484; 85025; 85379; 85610; 85730; 87040; 87502; 93005; 93306; 94640; 96365; 96375; 99285

== ENCOUNTER → 2017-02-16 | Outpatient (CLI) | payer MEDICARE ==
--- NOTE | 2017-02-16 13:28 | XR ---
EXAMINATION TYPE: XR chest 2V DATE OF EXAM: 02/16/2017 COMPARISON: 11/14/2016 TECHNIQUE: PA and lateral views submitted. HISTORY: COPD FINDINGS: The lungs are clear and there is no pneumothorax, pleural effusion, or focal pneumonia. Hyperinflat ion suggests COPD. Linear changes at the left lung base most typical scar or atelectasis. Hypertrophi c and degenerative change of the spine. Atherosclerotic change aorta. IMPRESSION: 1. No acute process.
--- NOTE | 2017-02-16 14:54 | NM ---
EXAMINATION TYPE: NM pul vent and perfuse DATE OF EXAM: 02/16/2017 COMPARISON: Chest x-ray 02/16/2017 HISTORY: Shortness of breath TECHNIQUE: Utilizing inhalation of 71 mCi Tc 99m DTPA aerosol and intravenous injection of 5.37 mCi of Tc 99m MAA, ventilation and perfusion images are acquired post injection in multiple projections. FINDINGS: Ventilation images are nondiagnostic due to heterogeneous uptake. This can be associated with COPD. S uggestion of at least 2 matched defects within the right lung. IMPRESSION: Severely limited exam for pulmonary embolism due to nondiagnostic ventilation images. Do suspect at l east 2 matched defects within the right lung which would place the patient at a intermediate probabil ity for pulmonary embolism.
== END | disposition home or self-care (01) ==
LOC: RADNMMAIN 12:53
PROVIDERS: ATTEND Internal Medicine Sleep Medicine
DX: I26.99 Other pulmonary embolism without acute cor pulmonale (principal); I74.9 Embolism and thrombosis of unspecified artery
CPT/HCPCS: 71020; 78582; A9540; A9567

== ENCOUNTER → 2017-04-20 | Outpatient (CLI) | payer MEDICARE ==
[2017-04-20 09:44] LABS: ALT 36 U/L (9-52); AST 25 U/L (14-36); Anion Gap 7 mmol/L; Blood Urea Nitrogen 14 mg/dL (7-17); Calcium 9.3 mg/dL (8.4-10.2); Carbon Dioxide 28 mmol/L (22-30); Chloride 106 mmol/L (98-107); Cholesterol 164 mg/dL (<200); Glucose 82 mg/dL (74-99); HDL Cholesterol 100 mg/dL (40-60); Non-African American GFR(MDRD) >60 (>60 ml/min/1.73 sqM); Potassium 4.3 mmol/L (3.5-5.1); Sodium 141 mmol/L (137-145)
== END ==
LOC: LABWHC1 08:49
PROVIDERS: ATTEND Internal Medicine Interventional Cardiology
DX: I10 Essential (primary) hypertension (principal); E78.2 Mixed hyperlipidemia
CPT/HCPCS: 36415; 80048; 80061; 84450; 84460

== ENCOUNTER 2020-04-18 08:34 | Day surgery (SDC) | payer MEDICARE ==
[2020-04-16 11:51] VITALS: BMI 26.4
[~2020-04-18 08:34] MED LIST: LACTATED RINGERS 1,000 ML IV SCH; ONDANSETRON 4 MG/2 ML VIAL IVP PRN
[2020-04-18 09:16] VITALS: TEMP 98.4
[2020-04-18] MEDS ORDERED: LIDOCAINE 1% (10MG/ML) FOR IV START INTRADERMA ONE (09:29)
[2020-04-18] MEDS ORDERED: PROPOFOL 10 MG/ML 20 ML VIAL IV ONE (09:46)
[2020-04-18] MEDS ORDERED: LIDOCAINE 1% INJ 10MG/ML (20 ML MDV) ONE (09:46)
--- NOTE | 2020-04-18 09:48 | P.GSHP ---
History of Present Illness H&P Date: 04/18/20 Chief Complaint: Diarrhea, GERD Cyst 70-year-old female referred from Dr. Roman. Patient will stay for EGD colonoscopy she's had issues with GERD and diarrhea. Her last colonoscopy was over 5 years ago. Past Medical History Past Medical History: Cancer, COPD, GERD/Reflux, Hypertension, Osteoarthritis (OA), Pneumonia, Thyroid Disorder Additional Past Medical History / Comment(s): Hx THYROID NODULE (SURGERY), LT BREAST CANCER WITH SURGERY & RADIATION [place] (2013)., SKIN CANCER., STATES CONSTIPATION/DIARRHEA AND BLOATING. History of Any Multi-Drug Resistant Organisms: None Reported Past Surgical History: Breast Surgery, Section, Hernia Repair, Hysterectomy, Tonsillectomy Additional Past Surgical History / Comment(s): PARTIALThyroidectomy(nodule), cataracts-lens implants, lt breast lumpectomy and sential nodes removed, x4 c- sections, abd hernia repair with mesh. Past Anesthesia/Blood Transfusion Reactions: No Reported Reaction Additional Past Anesthesia/Blood Transfusion Reaction / Comment(s): states local anesthetic does not work well. Past Psychological History: No Psychological Hx Reported Additional Psychological History / Comment(s): . Smoking Status: Former smoker Past Alcohol Use History: Daily Additional Past Alcohol Use History / Comment(s): started smoking at age 14, smoked 1 ppd, quit 2014. drinkes 1-2 beers/day Past Drug Use History: None Reported - Past Family History Father Family Medical History: Cancer Additional Family Medical History / Comment(s): bone cancer, smoker Mother Family Medical History: Cancer Additional Family Medical History / Comment(s): lung cancer Medications and Allergies Home Medications Medication Instructions Recorded Confirmed Type Albuterol Inhaler (Mhu) [Ventolin 1 - 2 puff INHALATION RT-Q6H PRN 11/11/16 04/18/20 History Hfa Inhaler (Mhu)] Omeprazole 20 mg PO DAILY 11/11/16 04/18/20 History Acetaminophen [Tylenol] 325 - 650 mg PO DIRECTED PRN 04/16/20 04/18/20 History Atorvastatin Calcium [Lipitor] 20 mg PO DAILY 04/16/20 04/18/20 History Cholecalciferol [Vitamin D3 (25 2,000 unit PO DAILY 04/16/20 04/18/20 History Mcg = 1000 Iu)] Naproxen Sodium [Aleve] 440 mg PO DIRECTED PRN 04/16/20 04/18/20 History Spironolactone [Aldactone] 12.5 mg PO HS 04/16/20 04/18/20 History Tiotropium 18 Mcg/Puff [Spiriva] 1 puff INHALATION DAILY 04/16/20 04/18/20 History lisinopriL [Prinivil] 20 mg PO DAILY 04/16/20 04/18/20 History Allergies Allergy/AdvReac Type Severity Reaction Status Date / Time No Known Allergies Allergy Verified 04/18/20 09:12 Surgical - Exam Vital Signs Temp Pulse Resp BP Pulse Ox 98.4 F 79 16 141/66 97 04/18/20 09:14 04/18/20 09:14 04/18/20 09:14 04/18/20 09:14 04/18/20 09:14 - General well developed, well nourished, no distress - Eyes PERRL - ENT normal pinna - Neck no masses - Respiratory normal expansion - Cardiovascular Rhythm: regular - Abdomen Abdomen: soft, non tender Assessment and Plan Assessment: GERD, diarrhea. We'll perform EGD and colonoscopy.
--- NOTE | 2020-04-18 10:10 | P.OP ---
Date of Procedure: 04/18/20 Preoperative Diagnosis: GERD Diarrhea Postoperative Diagnosis: Antral gastritis No evidence of hiatal hernia No evidence of esophagitis Procedure(s) Performed: EGD Colonoscopy Anesthesia: MAC Surgeon: Venkata Randhawa Pathology: other (Antrum) Condition: stable Disposition: PACU Description of Procedure: The patient's placed on the endoscopy table in the lateral position. She received IV sedation. The gastro-placed oropharynx passed in the esophagus and into the stomach. Scope then placed through the pylorus. The first and second portion of duodenum appeared normal. Scope was then brought back the antrum this. Mildly inflamed. A biopsies performed. The scope was retroflexed and remainder of the stomach appeared normal. The GE junction was at 40 cm. There is no evidence of a hiatal hernia. The distal esophagus appeared normal. The proximal esophagus appeared normal. Scope was brought patient. Next digital rectal exam was performed which revealed a few external hemorrhoids. Possible colonoscope was then placed patient anus and passed throughout the entire colon. The ileocecal valve was visualized. The cecum was normal. The ascending colon was normal. The transverse colon was normal. In the descending colon was a few scattered diverticula. In the sigmoid colon th ere is extensive diverticular changes. Scope was then brought back the rectum and this appeared normal. Scope was withdrawn from patient.
[2020-04-18 10:48] VITALS: BP 125/74; PULSE 88; RESP 18
== END 2020-04-18 10:48 | disposition home or self-care (01) ==
LOC: ORWHC2ENDO 08:34
PROVIDERS: ATTEND Surgery
DX: K29.50 Unspecified chronic gastritis without bleeding (principal); K21.9 Gastro-esophageal reflux disease without esophagitis; K64.4 Residual hemorrhoidal skin tags; K57.30 Diverticulosis of large intestine without perforation or abscess without bleeding; I10 Essential (primary) hypertension; J44.9 Chronic obstructive pulmonary disease, unspecified; M19.90 Unspecified osteoarthritis, unspecified site; E89.0 Postprocedural hypothyroidism; Z97.2 Presence of dental prosthetic device (complete) (partial); Z79.1 Long term (current) use of non-steroidal anti-inflammatories (NSAID); Z79.899 Other long term (current) drug therapy; Z98.41 Cataract extraction status, right eye; Z98.42 Cataract extraction status, left eye; Z98.890 Other specified postprocedural states; Z87.19 Personal history of other diseases of the digestive system; Z92.3 Personal history of irradiation; Z85.828 Personal history of other malignant neoplasm of skin; Z90.710 Acquired absence of both cervix and uterus; Z90.89 Acquired absence of other organs; Z87.01 Personal history of pneumonia (recurrent); Z86.39 Personal history of other endocrine, nutritional and metabolic disease; Z85.3 Personal history of malignant neoplasm of breast; Z96.1 Presence of intraocular lens; Z91.89 Other specified personal risk factors, not elsewhere classified; Z87.891 Personal history of nicotine dependence; Z80.8 Family history of malignant neoplasm of other organs or systems; Z81.2 Family history of tobacco abuse and dependence; Z80.1 Family history of malignant neoplasm of trachea, bronchus and lung
CPT/HCPCS: 88305; 45378; 43239; J2001; J2704

== ENCOUNTER → 2020-06-05 | Outpatient (CLI) | payer MEDICARE ==
--- NOTE | 2020-06-05 12:21 | MR ---
EXAMINATION TYPE: MR knee LT wo con DATE OF EXAM: 06/05/2020 COMPARISON: None HISTORY: LT knee pain TECHNIQUE: Multiplanar, multisequence imaging of the left knee is performed without IV contrast. FINDINGS: Narrowing of the joint spaces without evidence of erosive tear. Complex tear involving the posterior horn and body of the lateral meniscus with findings suspicious for a bucket-handle tear. There is a area of abnormal signal involving the posterior horn of the medial meniscus suggestive of a linear tear. Small focal area of marrow edema involving the posterior lateral femoral condyle may represent a tiny contusion. Early osteochondritis not excluded. Medial collateral and lateral collateral ligaments are intact. There is increased intrasubstance sign al involving the lateral collateral ligament at its origin. Anterior cruciate and posterior cruciate ligaments intact. Trace amount of fluid seen in the suprapatellar bursa. Patellar and quadriceps tendons are intact. Th ere is a popliteal fossa cyst measuring approximately 0.8 x 0.7 x 2.5 cm. IMPRESSION: 1. Findings are suspicious for a bucket-handle tear involving the lateral meniscus. Lateral collatera l ligament appears to be intact although there is some intrasubstance increased signal at its femoral attachment suggestive of ligamentous sprain. 2. Posterior horn medial meniscal tear. 3. Arthritic changes without evidence of erosive changes 4. Small popliteal fossa cyst. 5. Small less than 1 cm area of marrow edema posterior lateral femoral condyle compatible tiny contus ion. Early osteochondritis in the differential diagnosis. No evidence of free fragment or cartilagino us loss.
== END | disposition home or self-care (01) ==
LOC: RADMRIMAIN 10:03
PROVIDERS: ATTEND Orthopaedic Surgery
DX: S83.242A Other tear of medial meniscus, current injury, left knee, initial encounter (principal); S80.02XA Contusion of left knee, initial encounter; M93.962 Osteochondropathy, unspecified, left lower leg; M25.562 Pain in left knee

== ENCOUNTER → 2021-04-03 | Outpatient (CLI) | payer MEDICARE ==
--- NOTE | 2021-04-03 15:48 | NM ---
Nuclear medicine hepatobiliary scan. HISTORY: Pain. DOSAGE: The patient received 8 ounces of ensure plus and 3.8 mCi of Technetium 99m Choletec. FINDINGS: There is heterogeneous hepatic extraction. The gallbladder is seen by 20 minutes. There i s biliary to bowel clearance by 20 minutes. Ejection fraction is 88%. IMPRESSION: 1. No evidence of cholecystitis. Ejection fraction 88% can occasionally be seen with hyperdynamic gal lbladder. 2. Heterogeneous hepatic extraction. This is a nonspecific finding correlate with liver function stud ies and if warranted with ultrasound.
== END | disposition home or self-care (01) ==
LOC: RADNMMAIN 13:22
PROVIDERS: ATTEND Family Medicine
DX: R10.9 Unspecified abdominal pain (principal)
CPT/HCPCS: 78226; A9537

== ENCOUNTER → 2022-07-02 | Outpatient (CLI) | payer MEDICARE ==
--- NOTE | 2022-07-03 07:52 | MM ---
Reason for Exam: Screening (asymptomatic). Last screening mammogram was performed 12 month(s) ago. Patient History: Menarche at age 14. First Full-Term at age 21. Left ovary removed at age 38. Hysterectomy at age 38. Postmenopausal. Breast cancer, left, age 63. Previous chest radiation therapy at age 63. 06/26/1998, Benign Excisional Biopsy on the right side. 06/26/1998, High risk Excisional Biopsy on the left side. 06/04/1998, Benign Cyst Aspiration on the right side. Prior Study Comparison: 04/17/1997 Bilateral Screening Mammogram, [facility]. 05/27/1998 Bilateral Special View Mammogram, [facility]. 06/08/1998 Left Special View Mammogram, [facility]. 06/19/2020 Bilateral MG diagnostic mammo w CAD SHAN - 2, [facility]. 06/25/2021 Bilateral MG diagnostic mammo w CAD SHAN - 2, [facility]. Tissue Density: The breast tissue is heterogeneously dense. This may lower the sensitivity of mammography. Findings: Analyzed By CAD. There is no suspicious group of microcalcifications or new suspicious mass in either breast. Postoperative distortion left breast is stable. Overall Assessment: Benign, BI-RAD 2 Management: Screening Mammogram of both breasts in 1 year. A clinical breast exam by your physician is recommended on an annual basis and results should be correlated with mammographic findings. Electronically signed and approved by: Paulino Chew M.D. Radiologis
== END | disposition home or self-care (01) ==
LOC: RADMAMWWP 10:12
PROVIDERS: ATTEND Radiology Radiation Oncology
DX: Z12.31 Encounter for screening mammogram for malignant neoplasm of breast (principal); Z78.0 Asymptomatic menopausal state; Z90.721 Acquired absence of ovaries, unilateral
CPT/HCPCS: 77063; 77067

== ENCOUNTER → 2022-07-31 | Outpatient (CLI) | payer MEDICARE ==
[2022-07-31 18:26] LABS: HCT 33.2 % (37.2-46.3); HGB 10.5 g/dL (12.0-15.0); MCH 28.2 pg (27.0-32.0); MCHC 31.6 g/dL (32.0-37.0); Mean Platelet Volume 10.1 fL (9.5-12.2); NRBC Per 100 WBC 0 /100 WBCS (0.0-0.0); Platelet Count 397 X 10*3/uL (140-440); RBC 3.73 X 10*6/uL (4.10-5.20); RDW 13.8 % (11.5-14.5)
[2022-07-31 18:52] LABS: ALT 15 U/L (8-44); AST 23 U/L (13-35); Albumin 4.4 g/dL (3.8-4.9); Alkaline Phosphatase 98 U/L (41-126); BUN/Creat Ratio 14.22 Ratio (12.00-20.00); Blood Urea Nitrogen 12.8 mg/dL (9.0-27.0); Calcium 9.5 mg/dL (8.7-10.3); Carbon Dioxide 25.2 mmol/L (20.0-27.5); Chloride 99 mmol/L (96-109); Globulin 2.2 g/dL (1.6-3.3); Glucose 84 mg/dL (70-110); LDL Cholesterol,Calculated 69.8 mg/dL (0.0-131.0); Non-African American GFR(CKD) 63.9 (60.0-200.0); Potassium 4.9 mmol/L (3.5-5.5); Sodium 136 mmol/L (135-145); Total Protein 6.6 g/dL (6.2-8.2)
[2022-08-01 08:44] LABS: Appearance,Urine Clear (Clear); Bilirubin,Urine Negative (Negative); Blood,Urine Negative (Negative); Color,Urine Yellow (Yellow); Ketones,Urine Negative (Negative); Nitrite,Urine Negative (Negative); Specific Gravity,Urine 1.006 (1.001-1.030); Urobilinogen,Urine 0.2 (0.2,1.0)
[2022-08-01 08:49] LABS: Bacteria,Urine Trace /HPF (None Seen)
== END | disposition home or self-care (01) ==
LOC: LABWHC1 11:54
PROVIDERS: ATTEND Family Medicine
DX: Z00.01 Encounter for general adult medical examination with abnormal findings (principal)
CPT/HCPCS: 36415; 80053; 80061; 81001; 82306; 85027

== ENCOUNTER → 2022-08-07 | Outpatient (CLI) | payer MEDICARE ==
[2022-08-07 13:53] LABS: Appearance,Urine Clear (Clear); Bilirubin,Urine Negative (Negative); Blood,Urine Negative (Negative); Color,Urine Light Yellow; Glucose,Urine (UA) Negative (Negative); Hyaline Casts,Urine 1 /lpf (0-2); Ketones,Urine Negative (Negative); Leukocyte Esterase,Urine Moderate (Negative); Nitrite,Urine Negative (Negative); PH, Urine 6.5 (5.0-8.0); Protein,Urine Negative (Negative); RBC,Urine <1 /hpf (0-5); Specific Gravity,Urine 1.007 (1.001-1.035); Squamous Epithelial Cell,Urine <1 /hpf (0-4); Urobilinogen,Urine <2.0 mg/dL (<2.0); WBC,Urine 8 /hpf (0-5)
[2022-08-07 18:36] LABS: HGB 10.7 g/dL (12.0-15.0); MCHC 31.5 g/dL (32.0-37.0); MCV 92.1 fL (80.0-97.0); Mean Platelet Volume 9.8 fL (9.5-12.2); NRBC Per 100 WBC 0 /100 WBCS (0.0-0.0); Platelet Count 443 X 10*3/uL (140-440); RBC 3.69 X 10*6/uL (4.10-5.20); RDW 13.8 % (11.5-14.5); WBC 5.69 X 10*3/uL (4.50-10.00)
[2022-08-07 18:54] LABS: % Iron Saturation 12.9 (12.00-45.00); Ferritin 34.5 ng/mL (10.0-291.0)
== END | disposition home or self-care (01) ==
LOC: LABWHC1 12:31
PROVIDERS: ATTEND Family Medicine
DX: D64.9 Anemia, unspecified (principal); R89.9 Unspecified abnormal finding in specimens from other organs, systems and tissues
CPT/HCPCS: 36415; 81001; 82728; 83540; 83550; 85027

== ENCOUNTER → 2022-09-23 | Outpatient (CLI) | payer MEDICARE ==
[2022-09-23 19:26] LABS: Basophils # (A) 0.05 X 10*3/uL (0.00-0.10); Eosinophils # (A) 0.16 X 10*3/uL (0.04-0.35); Eosinophils % (A) 3.2 %; HGB 11.2 g/dL (12.0-15.0); Immature Grans, Automated 0.4 %; Lymphocytes # (A) 0.63 X 10*3/uL (0.90-5.00); Lymphocytes % (A) 12.5 %; MCH 28.4 pg (27.0-32.0); MCHC 31.1 g/dL (32.0-37.0); MCV 91.4 fL (80.0-97.0); Mean Platelet Volume 10.1 fL (9.5-12.2); Monocytes # (A) 0.51 X 10*3/uL (0.20-1.00); Monocytes % (A) 10.1 %; NRBC Per 100 WBC 0 /100 WBCS (0.0-0.0); Neutrophils # (A) 3.67 X 10*3/uL (1.80-7.70); Neutrophils % (A) 72.8 %; Platelet Count 388 X 10*3/uL (140-440); RBC 3.94 X 10*6/uL (4.10-5.20); RDW 14.6 % (11.5-14.5); WBC 5.04 X 10*3/uL (4.50-10.00)
== END | disposition home or self-care (01) ==
LOC: LABWHC1 13:01
PROVIDERS: ATTEND Family Medicine
DX: R89.9 Unspecified abnormal finding in specimens from other organs, systems and tissues (principal)
CPT/HCPCS: 36415; 85025

== ENCOUNTER → 2023-02-10 | Outpatient (CLI) | payer MEDICARE ==
[2023-02-10 21:16] LABS: HCT 32.8 % (37.2-46.3); HGB 10.4 d/dL (12.0-15.0); MCH 30.1 pg (27.0-32.0); MCHC 31.7 d/dL (32.0-37.0); MCV 94.8 FL (80.0-97.0); Mean Platelet Volume 10.1 FL (9.5-12.2); NRBC Per 100 WBC 0 X 10*3/uL (0.00-0.01); Platelet Count 395 X 10*3/uL (140-440); RBC 3.46 X 10*6/uL (4.10-5.20); RDW 13.7 % (11.5-14.5); WBC 4.95 X 10*3/uL (4.50-10.00)
[2023-02-10 22:24] LABS: % Iron Saturation 20.86 (12.00-45.00); Iron 73 UG/DL (50-170); Total Iron Binding Capacity 350 UG/DL (228-460)
[2023-02-10 23:21] LABS: BUN/Creat Ratio 11.18 Ratio (12.00-20.00); Blood Urea Nitrogen 12.3 mg/dL (9.0-27.0); Chloride 96 mmol/L (96-109); Glucose 78 mg/dL (70-110); Potassium 5.1 mmol/L (3.5-5.5); Sodium 133 mmol/L (135-145)
[2023-02-10 23:22] LABS: ALT 15 U/L (8-44); AST 31 U/L (13-35); Calcium 9.1 mg/dL (8.7-10.3); Carbon Dioxide 24.4 mmol/L (21.6-31.8)
[2023-02-10 23:51] LABS: Ferritin 41.4 ng/mL (10.0-291.0)
== END | disposition home or self-care (01) ==
LOC: LABWHC1 10:53
PROVIDERS: ATTEND Family Medicine
DX: I10 Essential (primary) hypertension (principal); D50.9 Iron deficiency anemia, unspecified; E55.9 Vitamin D deficiency, unspecified
CPT/HCPCS: 36415; 80048; 82306; 82728; 83540; 83550; 84450; 84460; 85027

== ENCOUNTER → 2023-03-03 | Outpatient (CLI) | payer MEDICARE ==
[2023-03-03 16:54] LABS: BUN/Creat Ratio 19.44 Ratio (12.00-20.00); Blood Urea Nitrogen 17.5 mg/dL (9.0-27.0); Calcium 9.3 mg/dL (8.7-10.3); Carbon Dioxide 26.2 mmol/L (21.6-31.8); Chloride 102 mmol/L (96-109); Glucose 91 mg/dL (70-110); Potassium 4.6 mmol/L (3.5-5.5); Sodium 139 mmol/L (135-145)
== END | disposition home or self-care (01) ==
LOC: LABWHC1 08:34
PROVIDERS: ATTEND Family Medicine
DX: R94.4 Abnormal results of kidney function studies (principal)
CPT/HCPCS: 36415; 80048

== ENCOUNTER → 2023-07-05 | Outpatient (CLI) | payer MEDICARE ==
[2023-07-05 16:19] LABS: Basophils # (A) 0.03 X 10*3/uL (0.00-0.10); Basophils % (A) 0.5 %; Eosinophils # (A) 0.19 X 10*3/uL (0.04-0.35); Eosinophils % (A) 3.1 %; HCT 34.6 % (37.2-46.3); HGB 11.2 d/dL (12.0-15.0); Lymphocytes # (A) 0.67 X 10*3/uL (0.90-5.00); Lymphocytes % (A) 10.9 %; MCHC 32.4 d/dL (32.0-37.0); MCV 92.8 FL (80.0-97.0); Mean Platelet Volume 10.1 FL (9.5-12.2); Monocytes # (A) 0.41 X 10*3/uL (0.20-1.00); Monocytes % (A) 6.7 %; NRBC Per 100 WBC 0 X 10*3/uL (0.00-0.01); Neutrophils % (A) 78.5 %; Platelet Count 425 X 10*3/uL (140-440); RBC 3.73 X 10*6/uL (4.10-5.20); RDW 13.6 % (11.5-14.5); WBC 6.12 X 10*3/uL (4.50-10.00)
[2023-07-05 16:34] LABS: Appearance,Urine Clear (Clear); Bilirubin,Urine Negative (Negative); Blood,Urine Negative (Negative); Color,Urine Yellow (Yellow); Ketones,Urine Negative (Negative); Nitrite,Urine Negative (Negative); PH, Urine 7.5; Specific Gravity,Urine 1.011 (1.001-1.030); Urobilinogen,Urine 0.2 E.U./DL
[2023-07-05 16:41] LABS: Bacteria,Urine None Seen (None Seen)
[2023-07-05 17:03] LABS: ALT 13 U/L (8-44); AST 23 U/L (13-35); Albumin 4.6 d/dL (3.8-4.9); Alkaline Phosphatase 78 U/L (41-126); BUN/Creat Ratio 17.38 Ratio (12.00-20.00); Blood Urea Nitrogen 13.9 mg/dL (9.0-27.0); Calcium 10.3 mg/dL (8.7-10.3); Carbon Dioxide 27.2 mmol/L (21.6-31.8); Chloride 100 mmol/L (96-109); Chol/HDL Ratio 1.79 Ratio; Globulin 2.3 d/dL (1.6-3.3); Glucose 86 mg/dL (70-110); LDL Cholesterol,Calculated 53.6 mg/dL (0.0-131.0); Potassium 5.1 mmol/L (3.5-5.5); Sodium 138 mmol/L (135-145); Total Bilirubin 0.3 mg/dL (0.3-1.2); Total Protein 6.9 d/dL (6.2-8.2)
--- NOTE | 2023-07-06 18:44 | MM ---
Reason for Exam: Screening (asymptomatic). Last screening mammogram was performed 12 month(s) ago. Patient History: Menarche at age 14. First Full-Term at age 21. Left ovary removed at age 38. Hysterectomy at age 38. Postmenopausal. Breast cancer, left, age 63. Previous chest radiation therapy at age 63. 06/26/1998, Benign Excisional Biopsy on the right side. 06/26/1998, High risk Excisional Biopsy on the left side. 06/04/1998, Benign Cyst Aspiration on the right side. Prior Study Comparison: 06/19/2020 Bilateral MG diagnostic mammo w CAD SHAN - 2, [facility]. 06/25/2021 Bilateral MG diagnostic mammo w CAD SHAN - 2, [facility]. 07/02/2022 Bilateral MG 3D screening mammo w/cad, [facility]. Tissue Density: The breast tissue is heterogeneously dense. This may lower the sensitivity of mammography. Findings: Analyzed By CAD. Benign vascular and oil cyst calcifications on the left. Post surgical change redemonstrated on the left. There is no suspicious group of microcalcifications or new suspicious mass in either breast. Overall Assessment: Benign, BI-RAD 2 Management: Screening Mammogram of both breasts in 1 year. . Patient should continue monthly self-breast exams. A clinical breast exam by your physician is recommended on an annual basis. This exam should not preclude additional follow-up of suspicious palpable abnormalities. Electronically signed and approved by: Tayler Whitney M.D. Radiologist
== END | disposition home or self-care (01) ==
LOC: RADMAMWWP 10:49
PROVIDERS: ATTEND Family Medicine
DX: Z00.01 Encounter for general adult medical examination with abnormal findings (principal); Z12.31 Encounter for screening mammogram for malignant neoplasm of breast; Z78.0 Asymptomatic menopausal state; Z85.3 Personal history of malignant neoplasm of breast
CPT/HCPCS: 77063; 77067; 80053; 80061; 81001; 82306; 83036; 84443; 85025

== ENCOUNTER → 2023-07-13 | Outpatient (CLI) | payer MEDICARE ==
--- NOTE | 2023-07-13 14:30 | XR ---
EXAMINATION TYPE: XR chest 2V DATE OF EXAM: 07/13/2023 COMPARISON: 02/16/2017 TECHNIQUE: PA and lateral views submitted. HISTORY: Presurgical FINDINGS: The lungs are clear and there is no pneumothorax, pleural effusion, or focal pneumonia. Heart size normal and no overt failure. Osseous structures demonstrate hypertrophic and degenerative changes of the spine. Hyperexpansion compatible with COPD. IMPRESSION: 1. No acute process. Correlate for COPD.
[2023-07-13 15:20] LABS: INR 0.9 (<1.2); Partial Thromboplastin Time 24.6 sec (22.0-30.0); Prothrombin Time 10.2 sec (10.0-12.5)
[2023-07-13 18:54] LABS: Basophils # (A) 0.03 X 10*3/uL (0.00-0.10); Basophils % (A) 0.5 %; Eosinophils # (A) 0.09 X 10*3/uL (0.04-0.35); Eosinophils % (A) 1.5 %; HCT 35.5 % (37.2-46.3); HGB 11.1 d/dL (12.0-15.0); Lymphocytes # (A) 0.62 X 10*3/uL (0.90-5.00); Lymphocytes % (A) 10.2 %; MCH 29.4 pg (27.0-32.0); MCHC 31.3 d/dL (32.0-37.0); MCV 94.2 FL (80.0-97.0); Mean Platelet Volume 10.3 FL (9.5-12.2); Monocytes # (A) 0.36 X 10*3/uL (0.20-1.00); Monocytes % (A) 5.9 %; NRBC Per 100 WBC 0 X 10*3/uL (0.00-0.01); Neutrophils # (A) 4.96 X 10*3/uL (1.80-7.70); Neutrophils % (A) 81.6 %; Platelet Count 379 X 10*3/uL (140-440); RBC 3.77 X 10*6/uL (4.10-5.20); RDW 13.6 % (11.5-14.5); WBC 6.08 X 10*3/uL (4.50-10.00)
[2023-07-13 23:50] LABS: BUN/Creat Ratio 13.36 Ratio (12.00-20.00); Blood Urea Nitrogen 14.7 mg/dL (9.0-27.0); Carbon Dioxide 22.5 mmol/L (21.6-31.8); Chloride 103 mmol/L (96-109); Glucose 112 mg/dL (70-110); Potassium 5.5 mmol/L (3.5-5.5); Sodium 138 mmol/L (135-145)
== END | disposition home or self-care (01) ==
LOC: LABPAT 13:00
PROVIDERS: ATTEND Orthopaedic Surgery Orthopaedic Surgery of the Spine
DX: Z01.812 Encounter for preprocedural laboratory examination (principal); J44.9 Chronic obstructive pulmonary disease, unspecified; S22.050D Wedge compression fracture of T5-T6 vertebra, subsequent encounter for fracture with routine healing; Y99.9 Unspecified external cause status; R00.0 Tachycardia, unspecified
CPT/HCPCS: 71046; 80048; 85025; 85610; 85730; 93005

== ENCOUNTER → 2023-07-20 | Outpatient (CLI) | payer MEDICARE ==
[2023-07-20 15:29] LABS: BUN/Creat Ratio 18.12 Ratio (12.00-20.00); Basophils # (A) 0.04 X 10*3/uL (0.00-0.10); Basophils % (A) 0.7 %; Blood Urea Nitrogen 14.5 mg/dL (9.0-27.0); Calcium 10.1 mg/dL (8.7-10.3); Carbon Dioxide 26.4 mmol/L (21.6-31.8); Chloride 102 mmol/L (96-109); Eosinophils # (A) 0.14 X 10*3/uL (0.04-0.35); Eosinophils % (A) 2.3 %; Glucose 90 mg/dL (70-110); HGB 11.4 g/dL (12.0-15.0); Lymphocytes # (A) 0.76 X 10*3/uL (0.90-5.00); Lymphocytes % (A) 12.4 %; MCH 29.2 pg (27.0-32.0); MCHC 31.7 g/dL (32.0-37.0); MCV 92.3 FL (80.0-97.0); Mean Platelet Volume 10.1 FL (9.5-12.2); Monocytes # (A) 0.44 X 10*3/uL (0.20-1.00); Monocytes % (A) 7.2 %; NRBC Per 100 WBC 0 X 10*3/uL (0.00-0.01); Neutrophils # (A) 4.71 X 10*3/uL (1.80-7.70); Neutrophils % (A) 77.1 %; Platelet Count 380 X 10*3/uL (140-440); Potassium 5.3 mmol/L (3.5-5.5); RDW 13.6 % (11.5-14.5); Sodium 139 mmol/L (135-145); WBC 6.11 X 10*3/uL (4.50-10.00)
== END | disposition home or self-care (01) ==
LOC: LABWHC1 11:53
PROVIDERS: ATTEND Family Medicine
DX: R89.9 Unspecified abnormal finding in specimens from other organs, systems and tissues (principal)
CPT/HCPCS: 36415; 80048; 85025

== ENCOUNTER 2023-07-28 06:11 | Day surgery (SDC) | payer MEDICARE ==
[2023-07-21 13:21] VITALS: BMI 25.9
[2023-07-28] MEDS ORDERED: HYDROmorphone 0.5 MG/0.5 ML SYRINGE IVP PRN ×2 (06:35→08:31)
[2023-07-28] MEDS ORDERED: LIDOCAINE 1% (10MG/ML) FOR IV START INTRADERMA PRN (06:35)
[2023-07-28] MEDS ORDERED: ONDANSETRON 4 MG/2 ML VIAL IVP ONE (06:35)
[2023-07-28] MEDS ORDERED: LACTATED RINGERS 1,000 ML IV SCH (06:35)
[2023-07-28] MEDS ORDERED: DEXAMETHASONE SOD PHOSPHATE 4 MG/ML 1 ML VIAL IV ONE (06:35)
[2023-07-28] MEDS ORDERED: MIDAZOLAM 2 MG/2 ML VIAL IV PRN (06:35)
[2023-07-28 07:00] VITALS: RESP 16
[2023-07-28] MEDS ORDERED: PHENYLEPHRINE 10 MG/ML VIAL ONE (07:25)
[2023-07-28] MEDS ORDERED: MIDAZOLAM 2 MG/2 ML VIAL ONE (07:25)
[2023-07-28] MEDS ORDERED: SUCCINYLCHOLINE CHLORIDE 200 MG/10 ML VIAL IV ONE (07:25)
[2023-07-28] MEDS ORDERED: LIDOCAINE 1% INJ 10MG/ML (20 ML MDV) ONE (07:25)
[2023-07-28] MEDS ORDERED: fentaNYL (PF) 50 MCG/ML 2 ML AMP ONE (07:25)
[2023-07-28] MEDS ORDERED: PROPOFOL 10 MG/ML 20 ML VIAL IV ONE (07:25)
[2023-07-28] MEDS ORDERED: IOPAMIDOL M200 10 ML VIAL MISCELLANE ONE (07:58)
[2023-07-28] MEDS ORDERED: BUPIVACAINE (PF) 0.5% 30 ML VIAL SQ ONE (07:58)
[2023-07-28] MEDS ORDERED: KETOROLAC 15 MG/ML 1 ML VIAL IVP PRN (08:31)
[2023-07-28] MEDS ORDERED: HYDROcodone/APAP 5-325MG 1 EACH TAB PO PRN (08:31)
[2023-07-28] MEDS ORDERED: BENZOCAINE/MENTHOL LOZENG 1 EACH LOZENGE MUCOUS MEM PRN (08:31)
[2023-07-28] MEDS ORDERED: traMADol 50 MG TAB PO PRN (08:33)
[2023-07-28] MEDS ORDERED: ALBUTEROL NEBULIZED 2.5 MG/3 ML INHALATION PRN (08:33)
--- NOTE | 2023-07-28 08:38 | P.OP ---
Date of Procedure: 07/28/23 Preoperative Diagnosis: T6 subacute traumatic compression fracture, failed conservative treatment Postoperative Diagnosis: Same Anesthesia: GETA Pathology: other (T6 vertebral body biopsy to pathology) Condition: stable Disposition: PACU Description of Procedure: BRIEF OPERATIVE NOTE Preoperative Diagnosis: T6 subacute traumatic compression fracture, failed conservative treatment Postoperative Diagnosis: Same Procedure: Kyphoplasty of T6 Vertebral body biopsy of T6 Use of biplanar fluoroscopic guidance Surgeon: Dr. Dempsey [employer] Supervisor: Ben Dahl is present throughout the entire the case persistence during positioning, dissection, exposure, visualization, and all crucial elements of the case as well as closure. Anesthesia: General anesthesia per Dr. Colunga Estimated blood loss: Less than 10 mL Specimen: Vertebral body biopsy of T6 sent to pathology in formalin Complications: None apparent Components implanted: Bone cement approximately 4 mL Disposition: To recovery room in good stable condition. OPERATIVE INDICATIONS The patient has been having issues in their back ever since sustaining an injury. She was having mid and upper thoracic back pain and was found to have a new T6 vertebral compression fracture. The finding correlated well with her pain. We initially tried treatment with medication and bracing however the patient was not having any improvement and was not able to tolerate her brace well and had continued pain with significant debility. The patient has been through conservative treatment. They attempted conservative care with bracing however they're not having any benefit despite brace use. They continue to have significant pain and debility due to their fracture. We discussed various treatment options including surgery, and the patient wishes to proceed with surgery We discussed the risk, patient's alternatives and benefits of surgery including but not limited to, risk of bleeding risk of infection, risk of need for further surgery, risk of decreased, loss of motion, loss of function, cement extravasation, nerve damage, paralysis, heart attack, blindness and . OPERATIVE SUMMARY After discussing all the risks, patient alternatives and benefits at length, the patient elected to proceed with surgical intervention, signed informed consent, and presented for their procedure. The patient was seen and examined in the preoperative holding area and the surgical site was marked. The patient was given antibiotics and brought to the operating room. The patient was sedated and intubated by anesthesia in standard fashion. The patient was positioned on to the operating room table in a prone position on the appropriate well-padded and well molded bilateral chest rolls. We were careful to pad any bony prominences and pressure points. We were careful to maintain the patient's cervical spine and good neutral alignment and position throughout. We used 2 C-arm machines to establish biplanar fluoroscopic guidance in AP and lateral positions. We were able to localize the fractures appropriately at the T6 vertebrae. The patient was prepped and draped in a normal standard fashion. An appropriate timeout and keystone protocol performed. We were able to proceed with the surgery. The local wound area was infiltrated with local anesthetic. An incision was made over the lateral aspect of the pedicle on the right over the appropriate levels with a small 2 mm stab incision. Intraoperative fluoroscopy was taken which showed a marker at the appropriate level of the fracture at T6. With the appropriate level positively confirmed, I was able to position a sharp trocar over the lateral aspect of the pedicle. As able to advance the trocar into the pedicle and into the posterior aspect of vertebral body being careful to avoid penetration cephalad caudad or medially. The trocar was placed appropriately into the posterior aspect of vertebral body at the appropriate levels. This was confirmed with C-arm guidance. With the trocar intact I was then able to take a bone biopsy with a biopsy punch or a bony drill. The biopsy specimen was passed off to be sent to pathology in formalin. I was then able to place the kyphoplasty balloon within the vertebral body. The position was checked on C-arm. I was able to inflate the balloon under low pressure and visualization with C-arm. The balloon was well enclosed within the vertebral body. The cement was prepared. With the cement at appropriate working condition the balloons were deflated and removed. I was able to place bony cement with trocar with the cement delivery device under low pressure. It had good fill within the vertebral body. We're also get good spread of the cement within the vertebral body. There is no evidence of any extravasation of the cement posteriorly toward the canal. The cement was well contained at the appropriate levels. The cement was allowed to cure appropriately. The trochars removed and final images were taken on C-arm. This showed the cement at the appropriate levels. We were able to proceed with closure. The wound was cleaned and dried and dressed with the appropriate dressing. The drapes were broken down. The patient was gently rolled back onto their hospital bed being careful to maintain their cervical spine and good neutral alignment and position. They were woken up by anesthesia, extubated, and brought to the recovery room in good stable condition. The patient will be admitted to the hospital for observation and for appropriate postoperative care, medical management and monitoring. We will continue to follow them closely about the postoperative course.
[2023-07-28] MEDS ORDERED: SODIUM CHLORIDE 0.9% 1,000 ML IV SCH (08:45)
[2023-07-28 08:54] VITALS: TEMP 96.8
[2023-07-28] MEDS ORDERED: CYANOCOBALAMIN 500 MCG TAB PO SCH (09:00)
[2023-07-28] MEDS ORDERED: NON FORMULARY DRUG (Tiotropium 18 Mcg/Puff 1 PUFF Inhaler) INHALATION SCH (09:00)
[2023-07-28] MEDS ORDERED: lisinopriL 20 MG TAB PO SCH (09:00)
[2023-07-28] MEDS ORDERED: NON FORMULARY DRUG (Magnesium [Magnesium] 200 MG Tablet) PO SCH (09:00)
[2023-07-28] MEDS ORDERED: NON FORMULARY DRUG (Omeprazole [Omeprazole] 20 MG Capsule.Dr) PO SCH (09:00)
[2023-07-28] MEDS ORDERED: NON FORMULARY DRUG (Cholecalciferol 1,000 UNIT Tab) PO SCH (09:00)
[2023-07-28 09:52] VITALS: BP 136/78; PULSE 85
[2023-07-28] MEDS ORDERED: traMADol 50 MG TAB PO ONE (09:59)
--- NOTE | 2023-07-28 11:46 | XR ---
EXAMINATION TYPE: XR thoracic spine 2V, FL guidance operating room DATE OF EXAM: 07/28/2023 COMPARISON: NONE HISTORY: 73-year-old female with compression fracture kyphoplasty TECHNIQUE: Intraoperative fluoroscopy FINDINGS: 63 sec FL, 1.4570 mGycm2 Dap DOSE 4 total images IMPRESSION: Intraoperative fluoroscopy as above.
[2023-07-28] MEDS ORDERED: ACETAMINOPHEN TAB 500 MG TAB PO SCH (12:00)
[2023-07-28] MEDS ORDERED: SPIRONOLACTONE 25 MG TAB PO SCH (21:00)
[2023-07-28] MEDS ORDERED: ATORVASTATIN 20 MG TAB PO SCH (21:00)
== END 2023-07-28 10:21 | disposition home or self-care (01) ==
LOC: OR 06:11
PROVIDERS: ATTEND Orthopaedic Surgery Orthopaedic Surgery of the Spine
DX: M48.54XA Collapsed vertebra, not elsewhere classified, thoracic region, initial encounter for fracture (principal); M51.34 Other intervertebral disc degeneration, thoracic region; I10 Essential (primary) hypertension; F10.90 Alcohol use, unspecified, uncomplicated; Z85.3 Personal history of malignant neoplasm of breast; Z87.891 Personal history of nicotine dependence; Z79.899 Other long term (current) drug therapy
CPT/HCPCS: 88307; 88311; 72070; 22513; C1713; J2250; J0330; J0690; J2405; J2001; J3010; J2704; Q9966; J2371; J0665

== ENCOUNTER → 2023-10-18 | Outpatient (CLI) | payer MEDICARE ==
--- NOTE | 2023-10-18 18:19 | BD ---
EXAMINATION TYPE: Axial Bone Density DATE OF EXAM: 10/18/2023 CLINICAL HISTORY: 73 years old Female. ICD-10 CODE: Z91.89 OTHER SPECIFIED PERSONAL RISK FACTORS Height: 60 Weight: 136.0 FRAX RISK QUESTIONS: Alcohol (3 or more units per day): no Family History (Parent hip fracture): no Glucocorticoids (More than 3mos): no (Ex: prednisone, prednisolone, methylprednisolone, dexamethasone, and hydrocortisone). History of Fracture in Adulthood: yes Secondary Osteoporosis: 1. Type 1 Diabetes: no 2. Hyperthyroidism: no 3. Menopause before 45: yes 4. Malnutrition: no 5. Chronic liver disease: no Rheumatoid Arthritis: no Current Tobacco Use: no RISK FACTORS HISTORY OF: Surgery to Spine/Hip(right/left)/Wrist (right/left): no EXAM MEASUREMENTS: Bone mineral densitometry was performed using the Occasion System. Bone mineral density as measured about the Lumbar spine is: ----- L1-L4(G/cm2): 0.851 T Score Values are as follows: ----- L1: -2.2 ----- L2: -1.7 ----- L3: -3.1 ----- L4: -3.6 ----- L1-L4: -2.7 Z Score Values are as follows: ----- L1: -0.4 ----- L2: 0.1 ----- L3: -1.3 ----- L4: -1.7 ----- L1-L4: -0.9 Bone mineral density : baseline Bone mineral density about the R hip (g/cm2): 0.662 Bone mineral density about the L hip (g/cm2): 0.659 T Score values are as follows: -----R Neck: -3.0 -----L Neck: -2.6 -----R Total: -2.7 -----L Total: -2.8 Z Score values are as follows: -----R Neck: -1.1 -----L Neck: -0.7 -----R Total: -1.0 -----L Total: -1.0 Bone mineral density : baseline FRAX%s: The graph provided illustrates a 30.8% chance for a major osteoporotic fx and a 11.4% chance for the hips probability for fx in 10 years time. IMPRESSION: Osteoporosis (T Score less than -2.5). There is increased fracture risk and therapy is usually indicated based on age. Re-Screen 1-2 years. NOTE: T-SCORE=SD OF THE YOUNG ADULT MEAN.
== END | disposition home or self-care (01) ==
LOC: RADBDWWP 10:41
PROVIDERS: ATTEND Family Medicine
DX: M81.0 Age-related osteoporosis without current pathological fracture (principal); M85.88 Other specified disorders of bone density and structure, other site; Z78.0 Asymptomatic menopausal state; Z91.89 Other specified personal risk factors, not elsewhere classified
CPT/HCPCS: 77080

== ENCOUNTER → 2023-12-20 | Outpatient (CLI) | payer MEDICARE ==
[2023-12-20 20:08] LABS: Basophils # (A) 0.04 X 10*3/uL (0.00-0.10); Basophils % (A) 0.6 %; Eosinophils # (A) 0.14 X 10*3/uL (0.04-0.35); HCT 34.6 % (37.2-46.3); Lymphocytes # (A) 0.81 X 10*3/uL (0.90-5.00); Lymphocytes % (A) 11.7 %; MCH 29.7 pg (27.0-32.0); MCHC 31.8 g/dL (32.0-37.0); MCV 93.5 FL (80.0-97.0); Mean Platelet Volume 10.7 FL (9.5-12.2); Monocytes # (A) 0.34 X 10*3/uL (0.20-1.00); Monocytes % (A) 4.9 %; NRBC Per 100 WBC 0 X 10*3/uL (0.00-0.01); Neutrophils # (A) 5.58 X 10*3/uL (1.80-7.70); Neutrophils % (A) 80.5 %; Platelet Count 393 X 10*3/uL (140-440); RDW 14.2 % (11.5-14.5); WBC 6.93 X 10*3/uL (4.50-10.00)
[2023-12-20 21:59] LABS: Amylase 95 U/L (23-121); Lipase 55 U/L (14-63)
[2023-12-20 22:00] LABS: ALT 14 U/L (8-44); AST 22 U/L (13-35); Albumin 4.3 g/dL (3.8-4.9); Albumin/Globulin Ratio 1.79 Ratio (1.60-3.17); Alkaline Phosphatase 70 U/L (41-126); BUN/Creat Ratio 19.89 Ratio (12.00-20.00); Blood Urea Nitrogen 17.9 mg/dL (9.0-27.0); Calcium 9.9 mg/dL (8.7-10.3); Carbon Dioxide 19.8 mmol/L (21.6-31.8); Chloride 107 mmol/L (96-109); Globulin 2.4 g/dL (1.6-3.3); Glucose 92 mg/dL (70-110); Potassium 4.9 mmol/L (3.5-5.5); Sodium 141 mmol/L (135-145); T4, Free (Free Thyroxine) 1.24 ng/dL (0.80-1.80); Total Bilirubin 0.2 mg/dL (0.3-1.2); Total Protein 6.7 g/dL (6.2-8.2)
[2023-12-20 22:26] LABS: Gliadin AB IgA, Deaminated Negative (Negative); Gliadin AB IgG, Deaminated Negative (Negative); Gliadin AB IgG, Unit <0.4 U/mL
== END | disposition home or self-care (01) ==
LOC: LABWHC1 14:16
PROVIDERS: ATTEND Family Medicine
DX: R14.0 Abdominal distension (gaseous) (principal); R53.83 Other fatigue
CPT/HCPCS: 36415; 80053; 82150; 82306; 82607; 82746; 83013; 83516; 83690; 84439; 84443; 85025

== ENCOUNTER → 2023-12-24 | Outpatient (CLI) | payer MEDICARE | END | disposition home or self-care (01) | LOC: LABWHC1 12:53 | PROVIDERS: ATTEND Family Medicine | DX: R14.0 Abdominal distension (gaseous) (principal) ==

== ENCOUNTER → 2023-12-28 | Outpatient (CLI) | payer MEDICARE ==
--- NOTE | 2023-12-28 15:26 | FL ---
ESOPHOGRAM. HISTORY: Dysphagia Esophagram was performed per the air contrast technique. The patient swallowed barium and effervesce nt crystals without difficulty or delay. Esophageal peristalsis and motility appear to be within normal limits. There is no evidence for filling defect, mass or diverticulum. Small reducible hiatal hernia seen. 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 Subsequently single contrast cervical esophagram was performed which fails demonstrate evidence for a spiration penetration or mass. IMPRESSION: Small reducible hiatal hernia seen. 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
== END | disposition home or self-care (01) ==
LOC: RADUSWWP 10:07
PROVIDERS: ATTEND Family Medicine
DX: M47.812 Spondylosis without myelopathy or radiculopathy, cervical region (principal); K44.9 Diaphragmatic hernia without obstruction or gangrene; R13.19 Other dysphagia
CPT/HCPCS: 74220

== ENCOUNTER → 2024-01-13 | Outpatient (CLI) | payer MEDICARE ==
--- NOTE | 2024-01-13 10:00 | XR ---
EXAMINATION TYPE: XR abdomen complete w decub DATE OF EXAM: 01/13/2024 9:51 AM CLINICAL INDICATION:Female, 74 years old with history of R14.0 abdominal distention; [facility] COMPARISON: None. TECHNIQUE: Two views of the abdomen were obtained. FINDINGS: Moderate amount of stool throughout the colon. The bowel gas pattern is nonspecific without dilated loops of small or large bowel. There is no evidence for organomegaly or pneumoperitoneum. T he osseous structures are intact. No abnormal calcifications are present. Fecal material and gas are demonstrated throughout the colon and rectum. Degeneration changes throughout the spine. Peripheral ly calcified lesions are seen projecting over the left abdomen. IMPRESSION: 1. Moderate amount of stool throughout the colon. 2. Nonspecific bowel gas pattern without radiographic evidence for acute process.
--- NOTE | 2024-01-13 12:31 | FL ---
EXAMINATION TYPE: FL UGI air w small bowel DATE OF EXAM: 01/13/2024 COMPARISON: None HISTORY: History of bloating TECHNIQUE: A double contrast UGI study is performed with small bowel follow through. A total of 2 m inutes and 10 seconds of fluoroscopic time was utilized during procedure and 22 images obtained. Tot al dose area product (DAP) in uGy*m?, mGy*cm? (or similar): Not provided. FINDINGS: Pen Ruler Operator image of the abdomen shows no gross abnormality. There was tertiary contractions of esophagus with small hiatal hernia and mild gastroesophageal reflu x. There is mild narrowing of the distal esophagus with full thickening which could be on the basis o f reflux esophagitis. Gastric folds appear to be slightly thickened suspicious for gastritis. No obvious ulcer is seen. Duo denal bulb and sweep were unremarkable. The small bowel study shows normal transit to the colon in less than 30 minutes. There is normal muc osal fold pattern throughout the small bowel. There is no evidence of any stricture or filling defec t noted. The terminal ileum is unremarkable. IMPRESSION: 1. Fold thickening of the stomach correlation for gastritis. Consider direct visualization. 2. Small hiatal hernia with mild gastroesophageal reflux. There is mild fold thickening the esophagus suspicious for esophagitis correlate for reflux esophagitis. Mild narrowing of the distal esophagus at the level of the GE junction. Consider direct visualization.
== END | disposition home or self-care (01) ==
LOC: RADFLMAIN 09:19
PROVIDERS: ATTEND Internal Medicine Gastroenterology
DX: K44.9 Diaphragmatic hernia without obstruction or gangrene (principal); K21.9 Gastro-esophageal reflux disease without esophagitis; K31.89 Other diseases of stomach and duodenum; K22.89 Other specified disease of esophagus; R14.0 Abdominal distension (gaseous)
CPT/HCPCS: 74021; 74240; 74248

== ENCOUNTER → 2024-02-18 | Outpatient (CLI) | payer MEDICARE ==
[2024-02-18 10:03] LABS: African American GFR (CKD) 78 (>60 ml/min/1.73 sqM); Non-African American GFR(CKD) 67 (>60 ml/min/1.73 sqM)
[2024-02-18 10:13] LABS: NT-Pro-B-Type Natriuretic Pept 775 pg/mL
--- NOTE | 2024-02-21 17:42 | CT ---
EXAMINATION TYPE: CT abdomen pelvis w con CT DLP: 1152 mGycm, Automated exposure control for dose reduction was used. DATE OF EXAM: 02/18/2024 11:09 AM COMPARISON: Upper GI with small bowel 01/13/2024, abdominal x-rays 01/13/2024 CLINICAL INDICATION:Female, 74 years old with history of R10.11 GENERALIZED ABDOMINAL PAIN; bloating TECHNIQUE: Standard CT of the abdomen and pelvis following the administration of 100 cc of Isovue 3 00 IV contrast material and oral contrast. Coronal and sagittal reformats were performed. FINDINGS: LOWER CHEST: Bibasilar linear scarring and/or atelectasis. ABDOMEN LIVER: Subcentimeter hypodense focus within the posterior right hepatic lobe which is too small to ch aracterize but likely represents a cyst. GALLBLADDER AND BILE DUCTS: Contracted gallbladder. No biliary ductal dilatation. PANCREAS: Unremarkable. SPLEEN: A few punctate calcified granulomas. ADRENAL GLANDS: Unremarkable. KIDNEYS AND URETERS: No evidence of hydronephrosis or renal calculus. The kidneys enhance symmetrical ly. Subcentimeter hypodense focus within the superior pole of the right kidney which is too small to accurately characterize but likely represents a cyst. Contrast is demonstrated within both collecting systems on the delayed phase. Nonspecific bilateral perinephric fat stranding. PELVIS BLADDER: Incompletely distended but grossly unremarkable. REPRODUCTIVE: The uterus is surgically absent. ABDOMEN & PELVIS STOMACH AND BOWEL: Small hiatal hernia, duodenum is unremarkable. Enteric contrast reaches the sigmoi d colon. Pancolonic diverticulosis. Most prominent within the descending and sigmoid colon. No wall t hickening or surrounding inflammatory changes identified. The appendix is not visualized and may be s urgically absent. No evidence of bowel obstruction. No significant colonic stool burden. PERITONEUM/RETROPERITONEUM: No evidence of pneumoperitoneum or free fluid. Boubacar mesentery identified (series 3, image 41). VASCULATURE: No evidence of aortic aneurysm. Mild to moderate atherosclerotic calcification of the ao rta and its branches. MUSCULOSKELETAL: No acute osseous abnormalities. Prominent Schmorl's nodes involving the superior end plates of the T11 and T12 vertebral bodies. Degenerative disc disease demonstrated at L5-S1 with disc space narrowing, subchondral cyst, vacuum disc disease, and posterior osteophyte formation. Facet ar thropathy at this level bilaterally. LYMPH NODES: No gross evidence for lymphadenopathy. SOFT TISSUE/ABDOMINAL WALL: Unremarkable IMPRESSION: 1. Nonspecific boubacar mesentery which can be seen with mesenteric panniculitis versus idiopathic versu s other etiologies. 2. Pancolonic diverticulosis without CT evidence for acute diverticulitis. 3. Small hiatal hernia.
== END | disposition home or self-care (01) ==
LOC: RADCTMAIN 09:19
PROVIDERS: ATTEND Family Medicine
DX: K57.30 Diverticulosis of large intestine without perforation or abscess without bleeding (principal); K44.9 Diaphragmatic hernia without obstruction or gangrene
CPT/HCPCS: 83880; 82565; 74177; 36415; Q9967

== ENCOUNTER → 2024-02-23 | Outpatient (CLI) | payer MEDICARE ==
[2024-02-24 02:42] LABS: Cancer Antigen 19-9 33.8 U/mL (0.0-34.9); Carcinoembryonic Antigen 3.6 ng/mL (0.0-4.9)
== END | disposition home or self-care (01) ==
LOC: LABWHC1 15:37
PROVIDERS: ATTEND Internal Medicine Gastroenterology
DX: R93.5 Abnormal findings on diagnostic imaging of other abdominal regions, including retroperitoneum (principal)
CPT/HCPCS: 36415; 82378; 85652; 86038; 86140; 86301

== ENCOUNTER 2024-03-24 06:19 | Day surgery (SDC) | payer MEDICARE ==
[2024-03-24] MEDS ORDERED: LACTATED RINGERS 1,000 ML IV SCH (07:01)
[2024-03-24] MEDS ORDERED: LIDOCAINE 1% (10MG/ML) FOR IV START INTRADERMA PRN (07:01)
[2024-03-24 07:06] VITALS: TEMP 97.9
[2024-03-24] MEDS: LACTATED RINGERS 1,000 ML IV SCH (07:11)
[2024-03-24] MEDS: IV FLUID CONTINUATION 1,000 ML IV ONE (07:12)
[2024-03-24] MEDS ORDERED: PROPOFOL 10 MG/ML 20 ML VIAL IV ONE (07:35)
--- NOTE | 2024-03-24 07:57 | P.PCN ---
Date of Procedure: 03/24/24 Procedure(s) Performed: Brief history: Patient is a pleasant 74-year-old white femalescheduled for an elective upper endoscopy as well as colonoscopy as a part of evaluation ofabdominal pain, abdominal bloating and change in bowel habits for the last several months duration Procedure performed: EsophagogastroduodenoscopyWith biopsy Colonoscopy Preoperative diagnosis: abdominal pain, abdominal bloating and change in bowel habits Anesthesia: MAC Procedure: After informed consent was obtained from the patient was brought into the endoscopy unit and IV sedation was administered by anesthesia under continuous monitoring. Initially upper endoscopy was done. The Olympus GF 160 video endoscope was inserted inserted into the mouth and esophagus intubated without any difficulty and was gradually advanced into the stomach and duodenum and carefully examined. The bulb and second part of the duodenum appeared normal. activities were done from the duodenum to evaluate for celiac disease. The scope was then withdrawn into the stomach adequately insufflated with air and upon careful examination the antrum had mild gastritis and biopsies were done from this area. Mucosa of thebody, cardia and fundus appeared normal. The scope was then withdrawn into the esophagus. small hiatal hernia noted. The GE junction was located at 40 cm to the incisors. It appeared regular with no erythema erosions or ulcerations. Rest of the esophagus appeared normal. Patient tolerated the procedure well. At this time the patient continued to remain sedation. Initial digital rectal examination was normal. Olympus CF 160 video colonoscope was then inserted into the rectum and gradually advanced to the cecum without any difficulty. Careful examination was performed as the scope was gradually being withdrawn. The prep was excellent. The cecum, ascending colon, transverse colon, descending colon, sigmoid colon and rectum appeared normal. scattered sigmoid diverticulosis Retroflexion was performed in the rectum and no lesions were noted. Patient tolerated the procedure well. Impression: 1. Upper endoscopy revealed mild antral gastritis and small hiatal hernia 2. Colonoscopy was within normal limits with no evidence of colorectal neoplasia except for scattered sigmoid diverticulosis Recommendations: Findings of this examination were discussed with the patient as well as her family. She was advised to follow with the biopsy results. She'll be seen in office in 2 weeks. Recommend repeat colonoscopy in 10 years.
[2024-03-24 08:07] VITALS: RESP 16
[2024-03-24 08:17] VITALS: BP 135/63; PULSE 77
== END 2024-03-24 08:32 | disposition home or self-care (01) ==
LOC: ORWHC2ENDO 06:19
PROVIDERS: ATTEND Internal Medicine Gastroenterology
DX: K57.30 Diverticulosis of large intestine without perforation or abscess without bleeding (principal); K44.9 Diaphragmatic hernia without obstruction or gangrene; I10 Essential (primary) hypertension; E78.5 Hyperlipidemia, unspecified; J44.9 Chronic obstructive pulmonary disease, unspecified; K21.9 Gastro-esophageal reflux disease without esophagitis; Z87.891 Personal history of nicotine dependence; Z85.3 Personal history of malignant neoplasm of breast; Z79.899 Other long term (current) drug therapy; Z90.710 Acquired absence of both cervix and uterus
CPT/HCPCS: 45378; 43239; J2704

== ENCOUNTER → 2024-05-10 | Outpatient (CLI) | payer MEDICARE ==
--- NOTE | 2024-05-10 11:27 | CTL ---
EXAMINATION TYPE: CT Low Dose Lung DATE OF EXAM ORDERED: 05/10/2024 HISTORY: History of tobacco use, quit in 2017. Lung cancer screening CT DLP: 57.[address] CTDI: 1.8 mGy Automated exposure control for dose reduction was used. SCREENING VISIT: First screening visit COMPARISON: CTA chest 11/12/2016 TECHNIQUE: Low dose computed tomography scan was performed through the chest at 1 mm thick sections a nd reconstructed images in multiple planes at 1 mm and [address] DIAGNOSTIC QUALITY: Satisfactory FINDINGS: Nodules: 6.1 mm left apical nodular density (series 6, image 8). Not definitively visualized on prior CT 2017. Anterior right midlung lung tree in bud nodular opacities. LUNGS: COPD: Severity: Mild centrilobular emphysematous changes. Fibrosis: Severity: None Lymph nodes: Mildly prominent precarinal lymph node measuring 8 mm short axis. Right hilar calcified lymph nodes. Other findings: None RIGHT PLEURAL SPACE: Effusion: None Calcification: None Thickening: None Pneumothorax: None LEFT PLEURAL SPACE: Effusion: None Calcification: None Thickening: None Pneumothorax: None HEART: Heart Size: Normal Coronary Calcification: None Pericardial Effusion: None OTHER FINDINGS: Upper abdomen: Small hiatal hernia. Splenic calcified granulomas. Bony thorax: Vertebral augmentation changes involving the T6 vertebral body compression deformity. Mu ltilevel Schmorl's nodes. Supraclavicular region: Right thyroid lobe appears surgically absent. Other: Mild atherosclerotic calcification of the aorta and its branches. IMPRESSION: 1. Left apical 6.1 mm pulmonary nodule. 2. Anterior right midlung tree-in-bud nodular opacities suggesting an infectious/inflammatory bronchi olitis. Attention on follow-up. CT LUNG RAD AND CT CHEST RECOMMENDATION: Lung-Rad 4A Suspicious: Follow-up 3 month LDCT or PET/CT may be used when there is a > 8 mm solid component. S Modifier (other clinically significant findings): None
== END | disposition home or self-care (01) ==
LOC: RADCTMAIN 10:43
PROVIDERS: ATTEND Internal Medicine
DX: Z12.2 Encounter for screening for malignant neoplasm of respiratory organs (principal); R91.1 Solitary pulmonary nodule; Z87.891 Personal history of nicotine dependence
CPT/HCPCS: 71271

== ENCOUNTER → 2024-07-06 | Outpatient (CLI) | payer MEDICARE ==
--- NOTE | 2024-07-06 11:43 | MM ---
Reason for Exam: Screening (asymptomatic). Last screening mammogram was performed 12 month(s) ago. Patient History: Menarche at age 14. First Full-Term at age 21. Left ovary removed at age 38. Hysterectomy at age 38. Postmenopausal. Breast cancer, left, age 63. Previous chest radiation therapy at age 63. Patient used Tamoxifen for 5 years. 06/26/1998, Benign Excisional Biopsy on the right side. 06/26/1998, High risk Excisional Biopsy on the left side. 06/04/1998, Benign Cyst Aspiration on the right side. Prior Study Comparison: 06/25/2021 Bilateral MG diagnostic mammo w CAD SHAN - 2, [facility]. 07/02/2022 Bilateral MG 3D screening mammo w/cad, [facility]. 07/05/2023 Bilateral MG 3D screening mammo w/cad, [facility]. Tissue Density: The breasts are heterogeneously dense, which may obscure small masses. Findings: Analyzed By CAD. Right breast: There is no suspicious group of microcalcifications or new suspicious mass. Left breast: There is no suspicious group of microcalcifications or new suspicious mass. Benign-appearing calcifications left breast. Overall Assessment: Benign, BI-RAD 2 Management: Screening Mammogram of both breasts in [address] [facility] will attempt to contact patient to return for supplemental views and ultrasound if indicated. Patient should continue monthly self-breast exams. A clinical breast exam by your physician is recommended on an annual basis. This exam should not preclude additional follow-up of suspicious palpable abnormalities. Note on Anastasiia scores and lifetime risk: 1. A Anastasiia score greater than 3% is considered moderate risk. If this is the case, consider specialist referral to assess eligibility for a risk reducing agent. 2. If overall lifetime risk for the development of breast cancer is 20% or higher, the patient may qualify for future screening with alternating mammogram and breast MRI. [facility], , 07/06/2024 11:40 AM. Electronically signed and approved by: Roger Roman DO
== END | disposition home or self-care (01) ==
LOC: RADMAMWWP 11:01
PROVIDERS: ATTEND Family Medicine
DX: Z12.31 Encounter for screening mammogram for malignant neoplasm of breast
CPT/HCPCS: 77063; 77067

== ENCOUNTER → 2024-07-25 | Outpatient (CLI) | payer MEDICARE ==
[2024-07-25 12:25] LABS: Appearance,Urine Clear (Clear); Bacteria,Urine Rare /hpf; Bilirubin,Urine Negative (Negative); Blood,Urine Negative (Negative); Color,Urine Colorless; Glucose,Urine (UA) Negative (Negative); Ketones,Urine Negative (Negative); Leukocyte Esterase,Urine Moderate (Negative); Nitrite,Urine Negative (Negative); Protein,Urine Negative (Negative); Specific Gravity,Urine 1.008 (1.001-1.035); Squamous Epithelial Cell,Urine 1 /hpf (0-4); Urobilinogen,Urine <2.0 mg/dL (<2.0); WBC,Urine 3 /hpf (0-5)
[2024-07-25 15:34] LABS: ALT 11 U/L (8-44); AST 22 U/L (13-35); Albumin 4.2 g/dL (3.8-4.9); Albumin/Globulin Ratio 1.83 Ratio (1.60-3.17); Alkaline Phosphatase 59 U/L (41-126); BUN/Creat Ratio 15.67 Ratio (12.00-20.00); Blood Urea Nitrogen 14.1 mg/dL (9.0-27.0); Calcium 9.4 mg/dL (8.7-10.3); Carbon Dioxide 26.4 mmol/L (21.6-31.8); Chloride 102 mmol/L (96-109); Chol/HDL Ratio 2.79 Ratio; Globulin 2.3 g/dL (1.6-3.3); Glucose 79 mg/dL (70-110); LDL Cholesterol,Calculated 145.8 mg/dL (0.0-131.0); Potassium 4.6 mmol/L (3.5-5.5); Sodium 139 mmol/L (135-145); Total Bilirubin 0.3 mg/dL (0.3-1.2); Total Protein 6.5 g/dL (6.2-8.2)
[2024-07-25 16:25] LABS: HCT 35.7 % (37.2-46.3); HGB 11.1 g/dL (12.0-15.0); MCH 28.2 pg (27.0-32.0); MCHC 31.1 g/dL (32.0-37.0); MCV 90.8 FL (80.0-97.0); Mean Platelet Volume 10.3 FL (9.5-12.2); NRBC Per 100 WBC 0 X 10*3/uL (0.00-0.01); Platelet Count 387 X 10*3/uL (140-440); RBC 3.93 X 10*6/uL (4.10-5.20); RDW 13.7 % (11.5-14.5); WBC 5.97 X 10*3/uL (4.50-10.00)
== END | disposition home or self-care (01) ==
LOC: LABWHC1 11:26
PROVIDERS: ATTEND Family Medicine
DX: Z00.01 Encounter for general adult medical examination with abnormal findings (principal); I10 Essential (primary) hypertension; E55.9 Vitamin D deficiency, unspecified; E78.00 Pure hypercholesterolemia, unspecified
CPT/HCPCS: 36415; 80053; 80061; 81001; 82306; 83036; 85027

== ENCOUNTER → 2025-01-04 | Outpatient (CLI) | payer MEDICARE ==
[2025-01-04 20:08] LABS: ALT 14 U/L (8-44); AST 23 U/L (13-35); BUN/Creat Ratio 26.11 Ratio (12.00-20.00); Blood Urea Nitrogen 23.5 mg/dL (9.0-27.0); Calcium 9.3 mg/dL (8.7-10.3); Carbon Dioxide 21.7 mmol/L (21.6-31.8); Chloride 102 mmol/L (96-109); Glucose 89 mg/dL (70-110); Potassium 4.9 mmol/L (3.5-5.5); Sodium 137 mmol/L (135-145)
[2025-01-04 20:45] LABS: Basophils # (A) 0.03 X 10*3/uL (0.00-0.10); Basophils % (A) 0.4 %; Eosinophils # (A) 0.11 X 10*3/uL (0.04-0.35); Eosinophils % (A) 1.4 %; HCT 33.9 % (37.2-46.3); HGB 10.7 g/dL (12.0-15.0); Lymphocytes # (A) 0.62 X 10*3/uL (0.90-5.00); Lymphocytes % (A) 8.1 %; MCH 30.1 pg (27.0-32.0); MCHC 31.6 g/dL (32.0-37.0); MCV 95.2 FL (80.0-97.0); Mean Platelet Volume 9.8 FL (9.5-12.2); Monocytes # (A) 0.45 X 10*3/uL (0.20-1.00); Monocytes % (A) 5.9 %; NRBC Per 100 WBC 0 X 10*3/uL (0.00-0.01); Neutrophils # (A) 6.41 X 10*3/uL (1.80-7.70); Neutrophils % (A) 83.7 %; Platelet Count 408 X 10*3/uL (140-440); RBC 3.56 X 10*6/uL (4.10-5.20); RDW 13.7 % (11.5-14.5); WBC 7.66 X 10*3/uL (4.50-10.00)
== END | disposition home or self-care (01) ==
LOC: LABWHC1 12:04
PROVIDERS: ATTEND Family Medicine
DX: I10 Essential (primary) hypertension (principal); E55.9 Vitamin D deficiency, unspecified
CPT/HCPCS: 36415; 80048; 82306; 83036; 84450; 84460; 85025

== ENCOUNTER → 2025-01-24 | Outpatient (CLI) | payer MEDICARE ==
--- NOTE | 2025-01-24 15:09 | CT ---
CT thorax with contrast HISTORY: Solitary pulmonary nodule COMPARISON: 05/10/2024. TECHNIQUE: Multiple axial images were obtained through the thorax following IV contrast administratio n. FINDINGS: There are mild emphysematous changes with upper lobe predominance. A 6 mm left apical nodule has resolved in the interval. There is stable mild localized reticulation and groundglass opacity in the right upper lobe anteriorl y. Most likely reflects mild chronic inflammatory change. There is no new or suspicious lung mass or nodule. Great vessels and chest and heart are normal in si ze. There is no mediastinal, hilar or axillary adenopathy. There is a moderate to large hernia. Limited scanning through the upper abdomen reveals no gross abnormality. There are stable vertebroplasty one of the mid thoracic vertebral segments and a mild stable superior endplate compression deformity in one of the lower thoracic/upper lumbar segments. No new osseous ab normalities are seen. IMPRESSION: 1. Resolution of the 6 mm nodule left lung apex. 2. Stable mild localized reticulation and groundglass opacity in the right upper lobe anteriorly most likely reflecting mild chronic inflammatory change. 3. Mild emphysematous changes. 4. No new or suspicious lung mass or nodule 5. moderate to large hiatal hernia. [facility], , 01/24/2025 3:07 PM
== END | disposition home or self-care (01) ==
LOC: RADCTMAIN 14:11
PROVIDERS: ATTEND Internal Medicine
DX: R91.1 Solitary pulmonary nodule (principal); J43.9 Emphysema, unspecified; J98.4 Other disorders of lung
CPT/HCPCS: 71260; Q9967

== ENCOUNTER → 2025-02-14 | Outpatient (CLI) | payer MEDICARE ==
[2025-02-14 15:49] LABS: Basophils # (A) 0.03 X 10*3/uL (0.00-0.10); Basophils % (A) 0.5 %; Eosinophils # (A) 0.11 X 10*3/uL (0.04-0.35); Eosinophils % (A) 1.8 %; HCT 33.7 % (37.2-46.3); HGB 10.9 g/dL (12.0-15.0); Lymphocytes % (A) 11.6 %; MCH 29.9 pg (27.0-32.0); MCHC 32.3 g/dL (32.0-37.0); MCV 92.6 FL (80.0-97.0); Mean Platelet Volume 9.5 FL (9.5-12.2); Monocytes # (A) 0.43 X 10*3/uL (0.20-1.00); Monocytes % (A) 7.1 %; NRBC Per 100 WBC 0 X 10*3/uL (0.00-0.01); Neutrophils # (A) 4.75 X 10*3/uL (1.80-7.70); Neutrophils % (A) 78.7 %; Platelet Count 433 X 10*3/uL (140-440); RBC 3.64 X 10*6/uL (4.10-5.20); RDW 13.4 % (11.5-14.5); WBC 6.04 X 10*3/uL (4.50-10.00)
[2025-02-14 16:12] LABS: % Iron Saturation 26.26 (12.00-45.00)
== END | disposition home or self-care (01) ==
LOC: LABWHC1 11:44
PROVIDERS: ATTEND Family Medicine
DX: D64.9 Anemia, unspecified (principal)
CPT/HCPCS: 36415; 83540; 83550; 85025